=== PATIENT | female | born 1985 | race African-American/Black ===

== ENCOUNTER 2016-08-19 14:00 | Emergency (ER) | payer OTHER ==
[~2016-08-19] VITALS: Ht 170.2 cm; Wt 181.0 kg
[2016-08-19 14:29] VITALS: BP 150/92
--- NOTE | 2016-08-19 15:13 | RADIOLOGY REPORT ---
EXAMINATION: XR FOOT, RIGHT CLINICAL INFORMATION: Right foot pain COMPARISON: None TECHNIQUE: AP, lateral, and oblique views of the right foot. FINDINGS: There is diffuse soft tissue swelling. No acute fracture or dislocation. Alignment is anatomic. Joint spaces are maintained. No ankle joint effusion. IMPRESSION: Diffuse soft tissue swelling. No acute osseous abnormality.
--- NOTE | 2016-08-19 15:13 | ED GENERAL ADULT ---
History of Present Illness General Chief Complaint: Foot or Ankle Injury Stated Complaint: R FOOT SWELLING Source: patient Exam Limitations: no limitations Vital Signs & Intake/Output Vital Signs & Intake/Output Vital Signs Date Time Temp Pulse Resp B/P B/P Pulse O2 O2 Flow FiO2 Mean Ox Delivery Rate 08/19 1433 97.3 08/19 1429 97.3 90 20 150/92 95 Room Air Allergies Coded Allergies: bupropion (From WELLBUTRIN) (Severe, THROAT CLOSING 08/19/16) cephapirin (From CEFADYL) (Mild, HIVES 08/19/16) ciprofloxacin (From CIPRO) (Mild, VOMITING 08/19/16) tramadol (Mild, ITCHY 08/19/16) Triage Note: PT PRESENTS TO ER FOR RIGHT FOOT PAIN. PT DENIES TRAUMA OR INJURY TO FOOT. PT STATES PAIN STARTED 3 DAYS AGO. PT STATES PAIN IS WORSE WHEN AMBULATING. Triage Nurses Notes Reviewed? yes Onset: 3 days ago Duration: day(s):, constant, getting worse Injury Environment: atraumatic : No Patient currently breastfeeds: No HPI: 31-year-old female with a history of asthma and PE (currently managed on Coumadin with consistent in range INR's) presenting with atraumatic right foot pain/swelling gradual onset 3 days. Reports sharp pain that is worse with weightbearing and better with rest. Has tried Tylenol without relief. Denies fevers. (SHELLY TOPETE PA-C) Reconcile Medications Prazosin HCl 2 MG CAPSULE 1 CAP PO QPM URINE (Reported) Prednisone 10 MG TABLET 6 TAB PO DAILY foot swelling (ELOY HERNANDEZ DO) Past History Travel History Traveled to [place] past 21 day No Medical History Any Pertinent Medical History? see below for history Respiratory: asthma, pulmonary embolism Surgical History Surgical History: non-contributory Psychosocial History What is your primary language Turkmen Tobacco Use: Current Daily Use Daily Tobacco Use Amount/Type: =< 4 Cigarettes daily Family History Hx Contributory? No (SHELLY TOPETE PA-C) Review of Systems Review of Systems Constitutional: Denies: chills, fever, malaise, weakness. Respiratory: Denies: cough, short of breath, sputum production. Cardiovascular: Denies: chest pain, syncope. GI: Denies: abdominal pain, diarrhea, nausea, vomiting. Musculoskeletal: Reports: joint pain, joint swelling. Denies: muscle pain. Skin: Denies: change in skin color, erythema. (SHELLY TOPETE PA-C) Physical Exam Physical Exam General Appearance: well developed/nourished, no apparent distress Head: atraumatic Respiratory: normal breath sounds, lungs clear Cardiovascular: regular rate/rhythm Extremities: swelling, tenderness, On exam of the right foot there is diffuse edema extending up to the ankle, +TTP along lateral aspect, normal sensaiton, motor strength 5/5, pulses palpable, able to ambulate with slight limp. Core Measures ACS in differential dx? No CVA/TIA Diagnosis: No Severe Sepsis Present: No Septic Shock Present: No (SHELLY TOPETE PA-C) Progress Differential Diagnoses I considered the following diagnoses in my evaluation of the patient: [Fracture versus dislocation versus cellulitis versus osteoarthritis versus gout. Low suspicion for DVT given pain and swelling is isolated to the foot.] Plan of Care: Current Medications Sig/Fer Start time Last Medication Dose Stop Time Status Admin Oxycodone HCl 5 MG ONCE ONE 08/19 1545 AC (Roxicodone) 08/19 1546 Prednisone 60 MG ONCE ONE 08/19 1545 AC 08/19 1546 X-rays negative for fracture or dislocation, does show diffuse soft tissue swelling. Patient unable to take NSAIDs due to Coumadin management. We will give course of prednisone and apply Fady bandage. Instructed to apply ice to the area and follow-up with primary care provider. (SHELLY TOPETE PA-C) Initial ED EKG: none (SHELLY TOPETE PA-C) Departure Departure Disposition: HOME OR SELF CARE Condition: Stable Clinical Impression Primary Impression: Foot swelling Referrals: WALDEMAR KABA MD (PCP/Family) Departure Forms: Customer Survey General Discharge Information Comments Take 60 mg of prednisone once daily for the next 4 days. Keep Fady bandage applied during the day to help alleviate with swelling. Ice the foot 3-4 times daily to help alleviate swelling. Follow-up with her primary care provider for reevaluation. (SHELLY TOPETE PA-C) Departure Prescriptions: Current Visit Scripts Prednisone 6 TAB PO DAILY 4 Days PA/MASTER BREWER Co-Sign Statement Statement: ED Attending supervision documentation- [X] I saw and evaluated the patient. I have also reviewed all the pertinent lab results and diagnostic results. I agree with the findings and the plan of care as documented in the PA's/MASTER BREWER's documentation. [] I have reviewed the ED Record and agree with the PA's/MASTER BREWER's documentation. [] Additions or exceptions (if any) to the PAs/MASTER BREWER's note and plan are summarized below: [] (ELOY HERNANDEZ DO) Critical Care Note Critical Care Note Critical Care Time: non-applicable (YOSELYN JONES,SHELLY)
[2016-08-19] MEDS ORDERED: PREDNISONE10 M2 PO (15:52)
[2016-08-19] MEDS ORDERED: PRAZOSIN HCL2 M1 PO (16:05)
== END 2016-08-19 16:07 ==
LOC: ERH 14:00
DX: M79.89 Other specified soft tissue disorders (principal)
CPT/HCPCS: 73630-RT

== ENCOUNTER 2016-09-10 18:51 | Emergency (ER) | payer OTHER ==
[~2016-09-10] VITALS: Ht 170.2 cm; Wt 181.0 kg
[~2016-09-10 18:51] MED LIST: PRAZOSIN HCL2 M1 PO; PREDNISONE10 M2 PO
--- NOTE | 2016-09-10 20:23 | ED SKIN/ALLERGY COMPLAINT ---
History of Present Illness General Chief Complaint: Skin Rash/ Abcess Stated Complaint: ?SKIN INFECTION ON LEGS Source: patient, old records Exam Limitations: no limitations Vital Signs & Intake/Output Vital Signs & Intake/Output Vital Signs Date Time Temp Pulse Resp B/P B/P Pulse O2 O2 Flow FiO2 Mean Ox Delivery Rate 09/11 1400 98.1 74 18 118/74 97 Room Air 06/07 1208 97.9 76 18 120/70 98 Room Air 06/07 0834 98.1 72 18 112/74 98 Room Air 06/07 0606 97.6 70 20 111/63 97 Room Air 06/07 0355 96.8 72 20 110/62 97 Room Air 06/07 0219 95.3 77 20 107/59 97 Room Air 06/07 0008 95.7 77 18 109/62 97 Room Air 06/06 2225 95.9 89 20 102/59 99 Room Air 06/06 1859 96.8 89 20 147/73 94 Room Air ED Intake and Output / 0000 09/10 1200 Intake Total Output Total Balance Patient 399 lb Weight Weight Reported by Patient Measurement Method Allergies Coded Allergies: bupropion (From WELLBUTRIN) (Severe, THROAT CLOSING 08/19/16) cephapirin (From CEFADYL) (Mild, HIVES 08/19/16) ciprofloxacin (From CIPRO) (Mild, VOMITING 08/19/16) tramadol (Mild, ITCHY 08/19/16) Triage Note: PT STATES SHE WAS IN [facility] 1 WEEK AGO FOR CELLULITIS IN HER LOWER EXT. AND STATES SHE THINKS IT CAME BACK. PT STATES SHE HAS CHILLS AND HER LEGS ARE RED/WARM AND SWOLLEN Triage Nurses Notes Reviewed? yes : No Patient currently breastfeeds: No HPI: Patient comes in from a retirement complaining of bilateral leg pain and erythema to both of her thighs. Patient states that she was admitted to [facility] last week for a day and a half for cellulitis. Patient states that she had an ultrasound at that point which was negative for DVT. Patient is on Coumadin for DVT and PE in the past. Patient states that she received IV antibiotics were then but then was told that she did not need any antibiotics as an outpatient. Patient continues to have a throbbing pain to both legs. The pain is constant. There is no aggravating or mitigating factors. The pain is 6 out of 10. Patient denies any chest pain or shortness of breath. (KAYCEE PINO,IRMA Cano) Reconcile Medications Albuterol Sulfate (Proair Hfa) 90 MCG HFA.AER.AD 2 PUF INH PRN ASTHMA ( Reported) Albuterol Sulfate (Unknown Strength) VIAL.NEB (Unknown Dose) INH/RAFA PRN ASTHMA (Reported) [Bariatric walker] gait stability Divalproex Sodium (Depakote ER) 500 MG TAB.ER.24H 1,500 MG PO QPM MENTAL HEALTH (Reported) Duloxetine HCl (Cymbalta) 60 MG CAPSULE.DR 1 CAP PO BID MENTAL HEALTH ( Reported) Hydroxyzine Pamoate 100 MG CAPSULE 1 CAP PO TID PRN ANXIETY (Reported) Lurasidone HCl (Latuda) 80 MG TABLET 1 TAB PO QPM MENTAL HEALTH (Reported) Melatonin 3 MG TABLET 1 TAB PO QPM SLEEP (Reported) Prazosin HCl 2 MG CAPSULE 2 CAP PO QPM URINE (Reported) Prednisone 10 MG TABLET 1 TAB PO DAILY ARTHRITIS TAKE 4 TABS FOR 3 DAYS THEN TAKE 3 TABS FOR 3 DAYS THEN TAKE 2 TABS FOR 3 DAYS THEN TAKE 1 TAB FOR 3 DAYS Topiramate (Topamax) 200 MG TABLET 1 TAB PO QPM HEADACHES (Reported) Trazodone HCl 100 MG TABLET 2 TAB PO QPM SLEEP (Reported) Warfarin Sodium 6 MG TABLET 12 MG PO DAILY BLOOD THINNER (Reported) (SARAH DE LA VEGA MD) Past History Travel History Traveled to [place] past 21 day No Medical History Any Pertinent Medical History? see below for history Respiratory: asthma, pulmonary embolism Musculoskeletal: OBESITY Blood Disorders: DVT Surgical History Surgical History: non-contributory Psychosocial History What is your primary language Tongan Tobacco Use: Current Daily Use Daily Tobacco Use Amount/Type: =< 4 Cigarettes daily ETOH Use: denies use Illicit Drug Use: denies illicit drug use Family History Hx Contributory? No (KAYCEE PINO,IRMA Cano) Review of Systems Review of Systems Constitutional: Reports: no symptoms. EENTM: Reports: no symptoms. Respiratory: Reports: no symptoms. Cardiovascular: Reports: no symptoms. GI: Reports: no symptoms. Genitourinary: Reports: no symptoms. Musculoskeletal: Reports: see HPI. Skin: Reports: no symptoms. Neurological/Psychological: Reports: no symptoms. Hematologic/Endocrine: Reports: no symptoms. Immunologic/Allergic: Reports: no symptoms. All Other Systems: Reviewed and Negative (KAYCEE PINO,IRMA Cano) Physical Exam Physical Exam General Appearance: well developed/nourished, alert, awake, mild distress Head: atraumatic Eyes: Bilateral: PERRL, EOMI. Ears, Nose, Throat: normal pharynx, normal ENT inspection, hearing grossly normal Neck: normal inspection, supple Respiratory: normal breath sounds, chest non-tender, no respiratory distress, lungs clear Cardiovascular: regular rate/rhythm, normal peripheral pulses Gastrointestinal: normal bowel sounds, soft, non-tender Back: normal inspection Extremities: normal inspection, normal range of motion, no edema, NO ERYTHMEA Neurologic/Psych: no motor/sensory deficits, awake, alert, oriented x 3, normal mood/affect Lymphatic: no anterior cervical julianna, NO INGUINAL LAD (KAYCEE PINO,IRMA aCno) Progress Differential Diagnosis: CELLULITIS, DVT Plan of Care: Orders Procedure Date/time Status Regular Diet 09/11 B Active Theraputic Activities 15 Min 09/11 UNK Complete Therapeutic Exercise X 15 09/11 UNK Complete PT EVAL LOW COMPLEX 20 MIN 09/11 UNK Complete PT Evaluate & Treat 09/10 2217 Active CASE MANAGEMENT CONSULT 09/10 2217 Active Add-on Test (ER Only) 09/10 2046 Active BLOOD CULTURE 09/10 1899 Active PARTIAL THROMBOPLASTIN TIME 09/10 190 Complete PROTHROMBIN TIME 09/10 190 Complete DEPAKOTE LEVEL 09/10 190 Complete COMPREHENSIVE METABOLIC PANEL 09/10 190 Complete CBC WITHOUT DIFFERENTIAL 09/10 190 Complete Current Medications Sig/Fer Start time Last Medication Dose Stop Time Status Admin Trazodone HCl 200 MG QPM 09/11 2200 UNVr (Desyrel) Hydroxyzine HCl 100 MG Q8P PRN 09/11 1045 AC (Atarax) Valacyclovir HCl 1,000 MG QAM 09/11 1000 CAN (Valtrex) Melatonin 3 MG AT BEDTIME 09/10 223 UNVr 09/10 (Melatonin) 2348 Duloxetine HCl 60 MG BID 09/10 2213 UNVr 09/11 (Cymbalta) 1051 Laboratory Tests 09/10/162049: Anion Gap 12, Estimated GFR > 60, BUN/Creatinine Ratio 8.6, Glucose 88, Calcium 9.3, Total Bilirubin 0.6, AST 41 H, ALT 48, Alkaline Phosphatase 80, Total Protein 7.7, Albumin 4.2, Globulin 3.5, Albumin/Globulin Ratio 1.2, PT 15.4 H, INR 1.47 H, APTT 26, CBC w Diff NO MAN DIFF REQ, RBC 4.62, MCV 89.6, MCH 29.0, RDW 15.8 H, MPV 7.6, Gran % 51.4, Lymphocytes % 40.4, Monocytes % 5.2, Eosinophils % 2.4, Basophils % 0.6, Absolute Granulocytes 3.7, Absolute Lymphocytes 2.9, Absolute Monocytes 0.4, Absolute Eosinophils 0.2, Absolute Basophils 0, PUBS MCHC 32.3 L, Valproic Acid 41.6 L Microbiology 09/10 2049 BLOOD: Blood Culture - RES 09/10 1899 BLOOD: Blood Culture - CAN Cancelled: NO SECOND SET COLLECTED FOR MICRO DEPT. IF NEEDED MUST BE Hand-Off Endorsed To: SARAH DE LA VEGA MD Endorsed Time: 0700 Pending: consult (PT/CASE MANAGEMENT) Comments: Patient lives in retirement. Patient states that her leg pain just to the point that she is having mild difficulty ambulating. Patient states that this abnormal just before to our mission and prednisone. Patient states that after a few days and prednisone she felt better. Patient will remain in the emergency department overnight and have physical therapy and case management evaluation in the morning. Patient has been given 60 mg of prednisone and taper will be started. (KAYCEE PINO,IRMA Cano) Departure Departure Disposition: STILL A PATIENT Condition: Stable Clinical Impression Primary Impression: Leg pain Qualifiers: Laterality: bilateral Qualified Codes: M79.604 - Pain in right leg; M79.605 - Pain in left leg (KAYCEE PINO,IRMA Cano) Departure Time of Disposition: 1321 Referrals: WALDEMAR KABA MD (PCP/Family) Departure Forms: General Discharge Information Prescriptions: Current Visit Scripts [Bariatric walker] #1 Prednisone 0 PO SEE ADMIN CRITERIA #30 TAB 4 tabs for 3 days them 3 tabs for 3 days then 2 tabs for 3 days then 1 tab for 3 days (SARAH DE LA VEGA MD)
[2016-09-10] MEDS ORDERED: PROAIR HFA8.5 GM INH (20:28)
[2016-09-10] MEDS ORDERED: ALBUTEROL2.5 MG/3 M INH/SOL (20:29)
[2016-09-10] MEDS ORDERED: HYDROXYZINE PA100 M1 PO (20:30)
[2016-09-10] MEDS ORDERED: DEPAKOTE ER500 M1 PO (20:31)
[2016-09-10] MEDS ORDERED: LATUDA80 M1 PO (20:31)
[2016-09-10] MEDS ORDERED: CYMBALTA60 M1 PO (20:31)
[2016-09-10] MEDS ORDERED: MELATONIN3 M4 PO (20:32)
[2016-09-10] MEDS ORDERED: TRAZODONE HCL100 M1 PO (20:32)
[2016-09-10] MEDS ORDERED: WARFARIN SODIUM6 M1 PO (20:33)
[2016-09-10] MEDS ORDERED: TOPAMAX200 M1 PO (20:33)
[2016-09-10 21:11] LABS: ABSOLUTE BASOPHIL COUNT 0 /CUMM (0.0-0.2); ABSOLUTE EOSINOPHIL COUNT 0.2 /CUMM (0.0-0.7); ABSOLUTE GRANULOCYTE CT 3.7 /CUMM (1.4-6.5); ABSOLUTE LYMPH COUNT 2.9 /CUMM (1.2-3.4); ABSOLUTE MONOCYTE COUNT 0.4 /CUMM (0.10-0.60); BASOPHIL % 0.6 % (0.0-2.0); EOSINOPHIL % 2.4 % (0-5); GRANULOCYTE % 51.4 % (42.2-75.2); HEMATOCRIT 41.4 % (37-47); MEAN CORPUSCULAR HGB CONC 32.3 G/DL (33.0-37.0); MEAN CORPUSCULAR VOLUME 89.6 FL (81.0-99.0); MEAN PLATELET VOLUME 7.6 FL (7.4-10.4); PLATELET COUNT 298 /CUMM (130-400); RBC DISTRIBUTION WIDTH 15.8 % (11.5-14.5); RED BLOOD CELL CT 4.62 /CUMM (4.20-5.40); WHITE BLOOD CELL COUNT 7.3 /CUMM (4.8-10.8)
[2016-09-10 21:22] LABS: PT 15.4 SEC (9.4-12.5); PTT 26 SEC (25-37)
[2016-09-10] MEDS ORDERED: PREDNISONE10 M2 PO (22:45)
[2016-09-11] MEDS ORDERED: [UNRECOGNIZED DRUG - OTHER] (09:45)
[2016-09-11 14:00] VITALS: BP 118/74
[2016-09-11] MEDS ORDERED: PREDNISONE10 M2 PO (14:04)
[2016-09-11] MEDS ORDERED: WARFARIN SODIUM6 M1 PO (14:21)
[2016-09-11] MEDS ORDERED: ACETAMINOPHEN325 M2 PO (14:21)
== END 2016-09-11 14:20 ==
LOC: ERH 18:51
PROVIDERS: Emergency Medicine
DX: M79.604 Pain in right leg (principal); M79.605 Pain in left leg
CPT/HCPCS: 87040; 97110-GP; 97161-GP; 97530-GP

== ENCOUNTER 2016-09-16 18:13 | Emergency (ER) | payer OTHER ==
[~2016-09-16] VITALS: Ht 170.2 cm; Wt 181.0 kg
[~2016-09-16 18:13] MED LIST changes: +ACETAMINOPHEN325 M2 PO; +ALBUTEROL2.5 MG/3 M INH/SOL; +CYMBALTA60 M1 PO; +DEPAKOTE ER500 M1 PO; +HYDROXYZINE PA100 M1 PO; +LATUDA80 M1 PO; +MELATONIN3 M4 PO; +PROAIR HFA8.5 GM INH; +TOPAMAX200 M1 PO; +TRAZODONE HCL100 M1 PO; +WARFARIN SODIUM6 M1 PO; +[UNRECOGNIZED DRUG - OTHER]
--- NOTE | 2016-09-16 20:29 | ED GI/GU/ABDOMINAL COMPLAINT ---
History of Present Illness General Chief Complaint: Abdominal Pain/Flank Pain Stated Complaint: LOWER LT ABDOMINAL PAIN Source: patient Exam Limitations: no limitations Vital Signs & Intake/Output Vital Signs & Intake/Output Vital Signs Date Time Temp Pulse Resp B/P B/P Pulse O2 O2 Flow FiO2 Mean Ox Delivery Rate 09/16 2103 98.1 78 18 112/78 97 Room Air 09/16 1820 97.7 88 20 124/82 95 Room Air Allergies Coded Allergies: bupropion (From WELLBUTRIN) (Severe, THROAT CLOSING 08/19/16) cephapirin (From CEFADYL) (Mild, HIVES 08/19/16) ciprofloxacin (From CIPRO) (Mild, VOMITING 08/19/16) tramadol (Mild, ITCHY 08/19/16) Reconcile Medications Acetaminophen 325 MG TABLET 2-3 TAB PO Q6P PRN pain Albuterol Sulfate (Proair Hfa) 90 MCG HFA.AER.AD 2 PUF INH PRN ASTHMA ( Reported) Albuterol Sulfate (Unknown Strength) VIAL.NEB (Unknown Dose) INH/RAFA PRN ASTHMA (Reported) Augmentin (Augmentin 500-125 Tablet) 500 MG-125 MG TABLET 1 TAB PO BID cellulitis Divalproex Sodium (Depakote ER) 500 MG TAB.ER.24H 1,500 MG PO QPM MENTAL HEALTH (Reported) Duloxetine HCl (Cymbalta) 60 MG CAPSULE.DR 1 CAP PO BID MENTAL HEALTH ( Reported) Hydroxyzine Pamoate 100 MG CAPSULE 1 CAP PO TID PRN ANXIETY (Reported) Lurasidone HCl (Latuda) 80 MG TABLET 1 TAB PO QPM MENTAL HEALTH (Reported) Melatonin 3 MG TABLET 1 TAB PO QPM SLEEP (Reported) Meloxicam (Mobic) 15 MG TABLET 1 TAB PO DAILY PRN pain Prazosin HCl 2 MG CAPSULE 2 CAP PO QPM URINE (Reported) Prednisone 10 MG TABLET 0 PO SEE ADMIN CRITERIA leg pain 4 tabs for 3 days them 3 tabs for 3 days then 2 tabs for 3 days then 1 tab for 3 days Topiramate (Topamax) 200 MG TABLET 1 TAB PO QPM HEADACHES (Reported) Trazodone HCl 100 MG TABLET 2 TAB PO QPM SLEEP (Reported) Warfarin Sodium 6 MG TABLET 2 TAB PO DAILY pe Triage Note: PT STATES SHE IS HAVING ABD PAIN LLQ STATES THE PAIN RADIATES INTO HER GROIN. PT STATES THE AREA IS RED AND IT FEELS LIKE "SOMETHING TORE" Triage Nurses Notes Reviewed? yes ? N Is pt currently ? No Onset: Abrupt Duration: constant Timing: recent history Quality/Severity: severe, stabbing Severity Numbers: 8 Radiation: no radiation Activities at Onset: none HPI: Patient is a 31-year-old female with a past medical history of gastric bypass surgery performed remotely who presents to emergency room stating that last night patient was eating her normal dinner and 5 hours later patient had acute onset of left lower quadrant abdominal pain and noticeable red skin irritation and point tenderness. Patient denies any fever chills vaginal bleeding or discharge dysuria hematuria nausea or vomiting. Patient does note of loose watery stool production today no blood no melena noted. Patient is able tolerate by mouth Past History Travel History Traveled to [place] past 21 day No Medical History Any Pertinent Medical History? see below for history Respiratory: asthma, pulmonary embolism Musculoskeletal: OBESITY Blood Disorders: DVT Surgical History Surgical History: GASTRIC BYPASS Psychosocial History What is your primary language Maltese Tobacco Use: Current Daily Use Daily Tobacco Use Amount/Type: =< 4 Cigarettes daily ETOH Use: occasional use Illicit Drug Use: denies illicit drug use Family History Hx Contributory? No Review of Systems Review of Systems Constitutional: Reports: no symptoms. EENTM: Reports: no symptoms. Respiratory: Reports: no symptoms. Cardiovascular: Reports: no symptoms. GI: Reports: see HPI, abdominal pain. Genitourinary: Reports: no symptoms. Musculoskeletal: Reports: no symptoms. Skin: Reports: no symptoms. Neurological/Psychological: Reports: no symptoms. Hematologic/Endocrine: Reports: no symptoms. Immunologic/Allergic: Reports: no symptoms. All Other Systems: Reviewed and Negative Physical Exam Physical Exam General Appearance: obese Gastrointestinal: normal bowel sounds, soft Comments: HEENT: Normal EENT exam, Neck: Supple, no lymphadenopathy, normal range of motion without pain or tenderness Back: Nontender, no CVA tenderness. Cardiovascular: Regular rate and rhythms no murmurs rubs or gallops, normal JVP Respiratory: Chest nontender. No respiratory distress.breath sounds clear to auscultation bilaterally Abdomen: Soft, noted left-sided periumbilical mild erythema WARMTH, point tenderness no right lower quadrant pain no rebound tenderness nondistended, no appreciable organomegaly. Normal bowel sounds. No ascites Extremity: No edema, no calf tenderness to palpation, normal and equal pulses. Neuro: Alert oriented x3, motor sensory normal, Skin: No appreciable rash on exposed skin, skin is warm and dry. Psych: Mood and affect is normal, memory and judgment is normal. Core Measures ACS in differential dx? No Severe Sepsis Present: No Septic Shock Present: No Progress Differential Diagnosis: AAA, AMI, appendicitis, biliary colic, bowel obstruction , colon cancer, cholecystitis, diverticulitis, ectopic , endometritis, esophageal varices, gastritis, hepatitis, hernia, hemorrhoids, ischemic bowel, inflamm bowel dis, intrauterine , kidney stone, Laisha-Rohan tear, ovarian cyst, ovarian torsion, pancreatitis, PID/cervicitis, peptic ulcer, PUD/ GERD, perforated viscous, SBO, threatened AB, UTI/pyelo Plan of Care: Orders Procedure Date/time Status LIPASE 09/17 2035 Complete HUMAN BETA HCG SCREEN 09/17 2035 Complete COMPREHENSIVE METABOLIC PANEL 09/17 2035 Complete CBC WITHOUT DIFFERENTIAL 09/17 2035 Complete URINE 09/16 1934 Complete URINALYSIS 09/16 1934 Complete Laboratory Tests 09/16/168: Urine Color YEL, Urine Clarity CLEAR, Urine pH 6.0, Ur Specific [place] 1.025, Urine Protein NEG, Urine Ketones NEG, Urine Nitrite NEG, Urine Bilirubin NEG, Urine Urobilinogen 0.2, Ur Leukocyte Esterase NEG, Ur Microscopic EXAM NOT REQUIRED, Urine Hemoglobin NEG, Urine Glucose NEG, Urine Test NEGATIVE 09/16/16 2141: Anion Gap 8, Estimated GFR > 60, BUN/Creatinine Ratio 16.0, Glucose 90, Calcium 9.0, Total Bilirubin 0.4, AST 13 L, ALT 29, Alkaline Phosphatase 63, Total Protein 6.7, Albumin 3.5, Globulin 3.2, Albumin/Globulin Ratio 1.1, Lipase 42, Total Beta HCG NEGATIVE, CBC w Diff NO MAN DIFF REQ, RBC 4.21, MCV 90.2, MCH 29.5, RDW 17.0 H, MPV 7.4, Gran % 61.4, Lymphocytes % 29.5, Monocytes % 7.6, Eosinophils % 1.1, Basophils % 0.4, Absolute Granulocytes 8.2 H, Absolute Lymphocytes 3.9 H, Absolute Monocytes 1.0 H, Absolute Eosinophils 0.1, Absolute Basophils 0.1, PUBS MCHC 32.7 L Patient currently is resting comfortably at bedside no apparent distress vital signs were within normal limits. Patient has superficial point tenderness noted to with erythema was noted on physical exam. Blood work currently pending. No signs of abscess or induration. PT HAS NO RLQ PAIN NO REBOUND TENDERNESS DUE TO HPI AND EXAM FINDINGS PT WILL BE TX FOR CONCERNS OF ABDOMINAL WALL CELLULITIS No concerns of appendicitis. Patient upon discharge looks well no apparent distress and will comply with discharge instructions and had no questions (SHIRA WEINBERG,QUINN) Initial ED EKG: none Departure Departure Disposition: HOME OR SELF CARE Condition: Stable Clinical Impression Primary Impression: Abdominal pain Secondary Impressions: Cellulitis of abdominal wall Referrals: SENDY PINO,WALDEMAR Givens (PCP/Family) Additional Instructions: As discussed begin the prescription of Augmentin as directed for the full course. Begin the prescription of meloxicam for pain and inflammation. If symptoms worsen return to emergency room. Prescriptions are waiting at [facility]. Follow up with your primary care doctor in 3 days if no better Departure Forms: Customer Survey General Discharge Information Prescriptions: Current Visit Scripts Augmentin (Augmentin 500-125 Tablet) 1 TAB PO BID #20 TAB Meloxicam (Mobic) 1 TAB PO DAILY PRN pain #5 TAB
[2016-09-16 21:49] LABS: ABSOLUTE BASOPHIL COUNT 0.1 /CUMM (0.0-0.2); ABSOLUTE EOSINOPHIL COUNT 0.1 /CUMM (0.0-0.7); ABSOLUTE GRANULOCYTE CT 8.2 /CUMM (1.4-6.5); ABSOLUTE LYMPH COUNT 3.9 /CUMM (1.2-3.4); BASOPHIL % 0.4 % (0.0-2.0); EOSINOPHIL % 1.1 % (0-5); HEMATOCRIT 37.9 % (37-47); MEAN CORPUSCULAR HGB 29.5 PG (27.0-31.0); MEAN CORPUSCULAR HGB CONC 32.7 G/DL (33.0-37.0); MEAN CORPUSCULAR VOLUME 90.2 FL (81.0-99.0); MEAN PLATELET VOLUME 7.4 FL (7.4-10.4); PLATELET COUNT 247 /CUMM (130-400); RED BLOOD CELL CT 4.21 /CUMM (4.20-5.40)
[2016-09-16 21:51] LABS: GRANULOCYTE % 61.4 % (42.2-75.2); WHITE BLOOD CELL COUNT 13.3 /CUMM (4.8-10.8)
[2016-09-16] MEDS ORDERED: MOBIC15 M1 PO (22:22)
[2016-09-16] MEDS ORDERED: AUGMENTIN 500-1 EACH PO (22:22)
[2016-09-16 22:45] VITALS: BP 116/81
== END 2016-09-16 22:45 ==
LOC: ERH 18:13
PROVIDERS: Physician Assistant
DX: R10.33 Periumbilical pain (principal); L03.311 Cellulitis of abdominal wall
CPT/HCPCS: 81003; 81025

== ENCOUNTER 2016-09-17 13:17 | Inpatient (IN) | payer OTHER ==
[~2016-09-17] VITALS: Ht 170.2 cm; Wt 190.5 kg
[~2016-09-17 13:17] MED LIST changes: +AUGMENTIN 500-1 EACH PO; +MOBIC15 M1 PO
--- NOTE | 2016-09-17 13:36 | ED GI/GU/ABDOMINAL COMPLAINT ---
History of Present Illness General Chief Complaint: Abdominal Pain/Flank Pain Stated Complaint: ABD PAIN SOB Source: patient Exam Limitations: no limitations Vital Signs & Intake/Output Vital Signs & Intake/Output Vital Signs Date Time Temp Pulse Resp B/P B/P Pulse O2 O2 Flow FiO2 Mean Ox Delivery Rate 09/17 1928 105 18 122/64 97 Room Air Room Air 09/17 1834 98.0 09/17 1647 98.7 109 18 97 Room Air 09/17 1548 113 16 98 Room Air 09/17 1522 100.7 09/17 1508 96 Room Air Room Air 09/17 1450 103.2 09/17 1335 103.2 110 20 128/66 97 Room Air Allergies Coded Allergies: bupropion (From WELLBUTRIN) (Severe, THROAT CLOSING 08/19/16) cephapirin (From CEFADYL) (Mild, HIVES 08/19/16) ciprofloxacin (From CIPRO) (Mild, VOMITING 08/19/16) tramadol (Mild, ITCHY 08/19/16) Triage Nurses Notes Reviewed? yes ? N Is pt currently ? No HPI: 31 yo F PMH Asthma, DVT/PE (on coumadin), gastric bypass presenting with fevers, abdominal pain, shortness of breath. Abdominal pain since yesterday, left lower quadrant, aching/stabbing quality, radiating to the left flank, left upper quadrant, and left chest, intermittent, fluctuating intensity, currently severe, possibly worse after eating. Associated nausea without emesis, loose stools. Tactile fevers and chills starting last night. Shortness of breath starting today, associated palpitations and sensation of racing heartbeat. Evaluated for left lower quadrant pain yesterday in the ED, redness to skin overlying left lower quadrant, though to have abdominal wall cellulitis, discharged with Augmentin which the patient was unable to obtain from the pharmacy or start taking. Denies cough or URI symptoms, lower extremity swelling or pain, palpitations, constipation, hematochezia, melena, urinary symptoms, vaginal symptoms, headache, neck pain, neck stiffness or focal neurologic symptoms. (FREDY PINO,HENNY) Reconcile Medications Acetaminophen 325 MG TABLET 2-3 TAB PO Q6P PRN pain Albuterol Sulfate (Proair Hfa) 90 MCG HFA.AER.AD 2 PUF INH PRN ASTHMA ( Reported) Albuterol Sulfate 2.5 MG/3 ML (0.083 %) VIAL.NEB 2.5 MG INH/RAFA Q6P PRN ASTHMA (Reported) Cefuroxime Axetil (Cefuroxime) 500 MG TABLET 1 TAB PO BID Pneumonia Divalproex Sodium (Depakote ER) 500 MG TAB.ER.24H 1,500 MG PO QPM MENTAL HEALTH (Reported) Duloxetine HCl (Cymbalta) 60 MG CAPSULE.DR 1 CAP PO BID MENTAL HEALTH ( Reported) Hydroxyzine Pamoate 100 MG CAPSULE 1 CAP PO TID PRN ANXIETY (Reported) Lurasidone HCl (Latuda) 80 MG TABLET 1 TAB PO QPM MENTAL HEALTH (Reported) Melatonin 3 MG TABLET 1 TAB PO QPM SLEEP (Reported) Meloxicam (Mobic) 15 MG TABLET 1 TAB PO DAILY PRN pain Oxycodone HCl/Acetaminophen (Percocet 5-325 MG Tablet) 5 MG-325 MG TABLET 2 TAB PO Q6-PRN PRN PAIN SCALE 7-10 (SEVERE) Prazosin HCl 2 MG CAPSULE 2 CAP PO QPM URINE (Reported) Topiramate (Topamax) 200 MG TABLET 1 TAB PO QPM HEADACHES (Reported) Trazodone HCl 100 MG TABLET 2 TAB PO QPM SLEEP (Reported) Warfarin Sodium 6 MG TABLET 2 TAB PO DAILY pe (TALHA PINO,COLTON) Past History Medical History Any Pertinent Medical History? see below for history Respiratory: asthma, pulmonary embolism Musculoskeletal: OBESITY Blood Disorders: DVT Surgical History Surgical History: GASTRIC BYPASS Psychosocial History What is your primary language Finnish Family History Hx Contributory? Yes (FREDY PINO,HENNY) Review of Systems Review of Systems Constitutional: Reports: chills, fever, malaise, weakness. EENTM: Reports: no symptoms. Respiratory: Reports: short of breath. Denies: cough, sputum production, stridor, wheezing. Cardiovascular: Reports: chest pain. Denies: palpitations, peripheral edema, syncope. GI: Reports: abdominal pain, diarrhea, nausea, vomiting. Denies: bloody stool. Genitourinary: Reports: no symptoms. Musculoskeletal: Reports: back pain. Denies: joint pain, joint swelling, muscle pain, muscle stiffness. Skin: Reports: change in skin color. Denies: rash. Neurological/Psychological: Reports: no symptoms. Hematologic/Endocrine: Reports: no symptoms. Immunologic/Allergic: Reports: no symptoms. All Other Systems: Reviewed and Negative (FREDY PINO,HENNY) Physical Exam Physical Exam General Appearance: well developed/nourished, no apparent distress, eyes closed, but easily aroused Head: atraumatic, normal appearance Neck: normal inspection, full range of motion, no midline tenderness Respiratory: normal breath sounds, no respiratory distress, lungs clear Cardiovascular: normal peripheral pulses, tachycardia Gastrointestinal: normal bowel sounds, soft, tenderness Back: CVA tenderness (L) Comments: General: Laying in a hospital bed, appears fatigued, eyes closed resting, easily aroused to voice Pulmonary: Lungs clear to auscultation bilaterally without adventitious lung sounds Abdomen: Obese, soft, Moderate tenderness palpation of left lower quadrant without rebound or guarding, left CVA tenderness palpation Extremities: No tenderness to palpation of bilateral lower extremities Core Measures ACS in differential dx? No Severe Sepsis Present: Yes Septic Shock Present: No (FREDY PINO,HENNY) Progress Differential Diagnosis: AAA, AMI, appendicitis, biliary colic, bowel obstruction , colon cancer, cholecystitis, diverticulitis, ectopic , endometritis, esophageal varices, gastritis, hepatitis, hernia, hemorrhoids, ischemic bowel, inflamm bowel dis, intrauterine , kidney stone, Laisha-Rohan tear, ovarian cyst, ovarian torsion, pancreatitis, PID/cervicitis, peptic ulcer, PUD/ GERD, perforated viscous, SBO, threatened AB, UTI/pyelo Plan of Care: Orders Procedure Date/time Status Nothing by Mouth 09/18 B Active Patient Data 09/17 2256 Active ED Holding Orders 09/17 2252 Active Vital Signs 09/17 2252 Active Code Status 09/17 2252 Active Admit to inpatient 09/17 2251 Active URINE 09/17 1702 Complete BLOOD CULTURE 09/17 1357 Active CULTURE,URINE 09/17 1350 Active URINALYSIS 09/17 1350 Complete PROTHROMBIN TIME 09/17 1350 Complete LACTIC ACID 09/17 1350 Complete HEPATIC FUNCTION PANEL 09/17 1350 Complete CBC WITHOUT DIFFERENTIAL 09/17 1350 Complete BASIC METABOLIC PANEL 09/17 1350 Complete EKG 09/17 1322 Active Current Medications Sig/Fer Start time Last Medication Dose Stop Time Status Admin Sodium Chloride 1,000 ML BOLUS ONE 09/17 2129 AC 09/17 (Normal Saline 0.9%) 09/17 2329 2207 Laboratory Tests 09/17/16 173: Urine Test NEGATIVE 09/17/16 173: Urine Color YEL, Urine Clarity CLEAR, Urine pH 6.0, Ur Specific Halma 1.010, Urine Protein NEG, Urine Ketones NEG, Urine Nitrite NEG, Urine Bilirubin NEG, Urine Urobilinogen 0.2, Ur Leukocyte Esterase NEG, Ur Microscopic EXAM NOT REQUIRED, Urine Hemoglobin NEG, Urine Glucose NEG 09/17/16 135: Anion Gap 8, Estimated GFR > 60, BUN/Creatinine Ratio 21.3, Glucose 93, Lactic Acid 1.9, Calcium 9.1, Total Bilirubin 0.4, Direct Bilirubin 0.1, AST 16, ALT 20 , Alkaline Phosphatase 68, Total Protein 6.8, Albumin 3.6, PT 22.1 H, INR 2.12 H, CBC w Diff MAN DIFF ORDERED, RBC 4.32, MCV 90.4, MCH 29.6, RDW 16.6 H, MPV 7.5, Gran % 92.5 H, Lymphocytes % 5.1 L, Monocytes % 2.3, Eosinophils % 0, Basophils % 0.1, Absolute Granulocytes 14.8 H, Segmented Neutrophils 81 H, Band Neutrophils 7 H, Absolute Lymphocytes 0.8 L, Lymphocytes 9 L, Monocytes 3, Absolute Monocytes 0.4, Absolute Eosinophils 0, Absolute Basophils 0, Platelet Estimate ADEQUATE, Normocytic RBCs VERIFIED, Normochromic RBCs VERIFIED , PUBS MCHC 32.7 L Microbiology 09/17 1736 URINE ROUT: Urine Culture - RECD 09/17 1410 BLOOD: Blood Culture - RECD 09/17 1358 BLOOD: Blood Culture - RECD 09/17 1352 BLOOD: Blood Culture - CAN Cancelled: Cancelled via OE: VENOUS COLLECTION 09/17 135 BLOOD: Blood Culture - CAN Cancelled: Cancelled via OE: VENOUS COLLECTION Physician MDM: 31 yo F PMH Asthma, DVT/PE (on coumadin), gastric bypass presenting with fevers, abdominal pain, shortness of breath. Tachycardic in the 120s, BP stable, febrile to 103.2, cardiopulmonary and abdominal exams as above. DDx: Sepsis with unclear source (UTI, pyelonpehritis, PNA, intrabdominal), appendicitis, diverticulitis, complication of prior gastric bypass, less likely PE given patient anticoagulated, low concern for ACS. EKG sinus tachycardia, nonischemic. 2 L normal saline and Tylenol ordered. Patient has allergies to cephalosporins, penicillins, and ciprofloxacin (reportedly anaphylaxis), will attempt broad spectrum coverage with vancomycin, Flagyl, Bactrim. CBC with leukocytosis to 16.0, bandemia of 7%. CMP with mild hyponatremia at 134, otherwise unremarkable. Lactate 1.9. Patient persistently tachycardic in the low 100s, third liter of normal saline ordered. Attempted to obtain CT of the abdomen and pelvis, patient placed on table for CT, CT table did not move into scanner, patient likely overweight for scanner. Patient transferred to [facility] via [facility] for CT scan of the abdomen and pelvis on the higher weight limit CT scanner. On return from [facility], HR 90s, BP stable, persistent LLQ/Left flank pain. CT A/P with "two large consolidated mass-like densites in the Left lung base along the pulmonary vasculature ... likely representing pneumonic consolidation." CT suggestive of PNA (espescially given fevers), but lesions along pulmonary vasculature also concerning for ?PE, no singificant changes in management given patient already therapeutically anticoagulated, will hold heparin gtt for now, plan discussed with admitting team. Admit to hospitalist for further managment of sepsis 2/2 PNA. The plan of care was discussed with the patient expressed agreement and understanding. (FREDY PINO,HENNY) Initial ED EKG: Sinus tachycardia (HENNY DANIEL MD) Departure Departure Disposition: STILL A PATIENT Condition: Stable Clinical Impression Primary Impression: Tachycardia Secondary Impressions: Sepsis Qualifiers: Sepsis type: sepsis due to unspecified organism Qualified Code: A41.9 - Sepsis, unspecified organism Referrals: WALDEMAR KABA MD (PCP/Family) Departure Forms: Customer Survey General Discharge Information Admission Note Spoke With: KYA HERNANDEZ MD Documentation of Exam: Documentation of any treatments & extenuating circumstances including Concerns Regarding Discharge (functional status, medication knowledge or non-compliance, living conditions, etc.) that warrant an admission rather than observation: [ Patient presents with shortness of breath, left-sided abdominal and chest pain, found to be septic with tachycardia, fever, probable source after evaluation in the left lower lobe pneumonia, but ongoing concern for PE, patient requires admission for ongoing IV fluid resuscitation, monitoring of vital signs, ongoing IV antibiotic administration, further evaluation for recurrent PE, if discharged patient has a high likelihood of progression of her infection, worsening sepsis with hypotension and cardiovascular collapse, leading to significant morbidity and possibly ] (FREDY PINO,HENNY) Departure Prescriptions: Current Visit Scripts Cefuroxime Axetil (Cefuroxime) 1 TAB PO BID #8 TAB Oxycodone HCl/Acetaminophen (Percocet 5-325 MG Tablet) 2 TAB PO Q6-PRN PRN PAIN SCALE 7-10 (SEVERE) #40 TAB Resident Co-Sign Statement Statement: ED Attending supervision documentation- [] I saw and evaluated the patient. I have also reviewed all the pertinent lab results and diagnostic results. I agree with the findings and the plan of care as documented in the Resident's documentation. [X] I have reviewed the ED Record and agree with the Resident's documentation. [] Additions or exceptions (if any) to the Resident's note and plan are summarized below: [] (TALHA PINO,COLTON)
--- NOTE | 2016-09-17 13:45 | NUR ---
31 YEAR OLD FEMALE TO ER WITH COMPLAINTS OF ABD PAIN THAT RADIATES INTO HER BACK AND FEELING SOB AND MID CPO2 SAT 100 % ON RA. . PT WAS EVALUATED YESTERDAY IN ER AND DIAGNOSED WITH CELLULITIS OF HER ABD AND SENT HOME WITH SCRIPTS FOR ABT. PT DID NOT START THEM DUE TO THEY WERE NOT DELIVERED. NO REDNESS NOTED ON HER ABD AT THIS TIME, PT STATES THAT SHE WAS NOT FEELING WELL THIS AM, N/V/D AND THEN SHE DECIDED TO GO SIT OUTSIDE , PT SKIN HOT TO TOUCH, FEBRILE 103.2 SINUS TACH ON MONITOR HR 120.
--- NOTE | 2016-09-17 13:50 | NUR ---
APPRECIATE TRIAGE NOTE. PT TO ROOM 17 VIA STRETCHER. AWAITING PROVIDER EVAL AT THIS TIME.
[2016-09-17 14:03] LABS: ABSOLUTE BASOPHIL COUNT 0 /CUMM (0.0-0.2); ABSOLUTE EOSINOPHIL COUNT 0 /CUMM (0.0-0.7); ABSOLUTE GRANULOCYTE CT 14.8 /CUMM (1.4-6.5); ABSOLUTE LYMPH COUNT 0.8 /CUMM (1.2-3.4); ABSOLUTE MONOCYTE COUNT 0.4 /CUMM (0.10-0.60); BASOPHIL % 0.1 % (0.0-2.0); EOSINOPHIL % 0 % (0-5); HEMATOCRIT 39.1 % (37-47); MEAN CORPUSCULAR HGB 29.6 PG (27.0-31.0); MEAN CORPUSCULAR HGB CONC 32.7 G/DL (33.0-37.0); MEAN CORPUSCULAR VOLUME 90.4 FL (81.0-99.0); MEAN PLATELET VOLUME 7.5 FL (7.4-10.4); PLATELET COUNT 235 /CUMM (130-400); RBC DISTRIBUTION WIDTH 16.6 % (11.5-14.5); RED BLOOD CELL CT 4.32 /CUMM (4.20-5.40)
[2016-09-17 14:05] LABS: GRANULOCYTE % 92.5 % (42.2-75.2)
[2016-09-17 14:07] LABS: PT 22.1 SEC (9.4-12.5)
--- NOTE | 2016-09-17 14:15 | NUR ---
PT TO RADIOLOGY FOR X-RAYS AND CAT SCAN VIA STRETCHER.
--- NOTE | 2016-09-17 14:24 | RADIOLOGY REPORT ---
EXAMINATION: XR CHEST CLINICAL INFORMATION: Cough and fever. Assess for pneumonia. COMPARISON: None. TECHNIQUE: Frontal and lateral views of the chest were obtained. Evaluation is suboptimal due to patient body habitus. FINDINGS: The lung nash are hypoexpanded bilaterally. No focal consolidation is demonstrated. There is crowding of the bronchovascular markings at the bases, likely secondary to the hypoexpansion. The cardiac silhouette is normal. There are no pleural effusions or pneumothorax. The central pulmonary vasculature is normal. The hilar regions appear normal. There are no acute osseous findings. IMPRESSION: 1. There are no acute cardiopulmonary findings. 2. Evaluation is slightly suboptimal as described above.
--- NOTE | 2016-09-17 14:45 | NUR ---
PT AWARE OF NEEDED URINE SPEC. COMODE PROVIDED
--- NOTE | 2016-09-17 14:51 | NUR ---
PT MEDICATED WITH ZOFRAN, MORPHINE, AND OFFIRMEV PER EMAR. TO CAT SCAN VIA STRETCHER.
--- NOTE | 2016-09-17 15:36 | NUR ---
PT RETURN FROM CAT SCAN AND IV NOT FLUSHING AT THIS TIME. ATTEMPTS X2 BY THIS RN TO RE-ESTABLISH ACCESS WITH NO SUCCESS.
--- NOTE | 2016-09-17 15:48 | NUR ---
BREN STARTED AT THIS TIME.
--- NOTE | 2016-09-17 17:07 | NUR ---
PT UPDATED ON POC. PT WILL BE TRANSFERRED TO [facility] FOR CAT SCAN AND WILL RETURN BACK.
--- NOTE | 2016-09-17 17:15 | NUR ---
[facility] TRANSPORT BOOKED TO GO TO [facility] CT SCAN.
--- NOTE | 2016-09-17 17:28 | NUR ---
ABDIRASHID HUNG AT THIS TIME. PT ASSISTED TO COMMODE TO PROVIDE URINE SPECIMEN.
--- NOTE | 2016-09-17 19:22 | NUR ---
[facility] TO BEDSIDE AT THIS TIME FOR TRANSPORT TO [facility] FOR CAT SCAN.
--- NOTE | 2016-09-17 21:11 | NUR ---
PT RETURN FROM [facility]. OFFERS NO COMPLAINTS AT THIS TIME.
--- NOTE | 2016-09-17 21:15 | NUR ---
DR. MCDONALD TO BEDSIDE TO DISCUSS RESULTS AND POC.
--- NOTE | 2016-09-17 23:00 | History & Physical ---
ANANYA PINO,[facility] [place] 09/17/16 2300: General Information and HPI MD Statement: I have seen and personally examined NANCY RICCI and documented this H&P. The patient is a 31 year old F who presented with a patient stated chief complaint of abdominal pain. Source of Information: patient, old records Exam Limitations: no limitations History of Present Illness: Ms. Ricci is a 31 y/o morbidly obese F with PMHx of gastric bypass (2003), factor V leiden mutation s/p recurrent DVT and PE on warfarin and bipolar disorder who presents with abdominal pain. Patient starts that the pain located in her lower abdomen started 2 days ago. The day prior to current presentation she was seen in the ED for the pain which was felt to be secondary to cellulitis given mild erythema and warmth appreciated around the left periumbilical region on exam. She was subsequently discharged on Augmentin and meloxicam but was not able to take the medications as they were not delivered to her from the pharmacy. This morning, the pain had started to radiate to her chest and back. She describes the chest pain as a 10 out of 10 "pricking" sensation. Patient reports associated shortness of breath, as pain is exacerbated by breathing, preventing her from taking deep breaths. She also endorses a dry cough which worsens the pain as well. There are no alleviating factors. ROS is positive for decreased appetite, nausea, vomiting, diarrhea and "seeing double". Patient denies fever, chills, palpitations, melena, bloody stool and dysuria. In the ED, patient spiked fevers to 103.2 and was given 1 dose of vancomycin, Flagyl and Bactrim for broad-spectrum coverage. CT Abdomen/Pelvis was attempted but could not be performed due to patient's obese body habitus as she was too large to fit comfortably into the scanner. She was transferred to [facility] for CT Abdomen/Pelvis which showed "two large consolidated mass-like densities in the left lung base along the pulmonary vasculature ... likely representing pneumonic consolidation". Patient is allergic to penicillin and ciprofloxacin. She is also allergic to cefazolin but reports that the reaction is vomiting. 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 Other ([facility]) Services at Home: None Primary Language: Hungarian Smoking Status: Current Everyday Smoker (2 Cigarettes Daily) ETOH Use: denies use Illicit Drug Use: denies illicit drug use Functional Ability ADLs Independent: dressing, eating, toileting, bathing. Ambulation: independent IADLs Independent: shopping, housework, finances, food prep, telephone, transportation , medication admin. 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 EENTM: Reports: double vision. Cardiovascular: Reports: chest pain. Denies: palpitations. Respiratory: Reports: cough, short of breath. Denies: orthopnea, sputum production. GI: Reports: abdominal pain, diarrhea, nausea, vomiting. Denies: melena, bloody stool. Genitourinary: Reports: no symptoms. Denies: dysuria. Musculoskeletal: Reports: no symptoms. Skin: Reports: no symptoms. Neurological/Psychological: Reports: no symptoms. Hematologic/Endocrine: Reports: no symptoms. Immunologic/Allergic: Reports: no symptoms. All Other Systems: Reviewed and Negative Exam & Diagnostic Data Last 24 Hrs of Vital Signs/I&O Vital Signs Date Time Temp Pulse Resp B/P B/P Pulse O2 O2 Flow FiO2 Mean Ox Delivery Rate 09/18 0030 98.2 88 20 125/60 97 Room Air 09/17 2345 98.1 09/17 2331 98.1 95 18 130/61 95 Room Air Room Air 09/17 1928 105 18 122/64 97 Room Air Room Air 09/17 1834 98.0 09/17 1647 98.7 109 18 97 Room Air 09/17 1548 113 16 98 Room Air 09/17 1522 100.7 09/17 1508 96 Room Air Room Air 09/17 1450 103.2 09/17 1335 103.2 110 20 128/66 97 Room Air Intake & Output 09/18 0800 09/18 0000 09/17 1600 Intake Total 1100 1250 Output Total Balance 1100 1250 Intake, IV 1100 1250 Patient 194.591 kg 194.591 kg Weight Weight Reported by Patient Reported by Patient Measurement Method Physical Exam General Appearance Alert, Oriented X3, No Acute Distress, Obese Skin No Rashes Skin Temp/Moisture Exam: Warm/Dry HEENT Atraumatic, Mucous Membr. moist/pink Neck Supple Cardiovascular Regular Rate, Normal S1, Normal S2 Lungs Clear to Auscultation, Exam Limited by Poor Respiratory Effort Secondary to Pain, Diminished Breath Sounds Abdomen Soft, No Tenderness, Positive Bowel Sounds, No Warmth, Erythema or Tenderness Appreciated on Abdominal Wall Extremities No Clubbing, No Cyanosis, No Edema Last 24 Hrs of Labs/Leonard: Laboratory Tests 09/17/16 1737: Urine Test NEGATIVE 09/17/16 173: Urine Color YEL, Urine Clarity CLEAR, Urine pH 6.0, Ur Specific [place] 1.010, Urine Protein NEG, Urine Ketones NEG, Urine Nitrite NEG, Urine Bilirubin NEG, Urine Urobilinogen 0.2, Ur Leukocyte Esterase NEG, Ur Microscopic EXAM NOT REQUIRED, Urine Hemoglobin NEG, Urine Glucose NEG 09/17/16 1352: Anion Gap 8, Estimated GFR > 60, BUN/Creatinine Ratio 21.3, Glucose 93, Lactic Acid 1.9, Calcium 9.1, Magnesium 1.6, Total Bilirubin 0.4, Direct Bilirubin 0.1, AST 16, ALT 20, Alkaline Phosphatase 68, Troponin I < 0.01, Total Protein 6.8, Albumin 3.6, PT 22.1 H, INR 2.12 H, CBC w Diff MAN DIFF ORDERED, RBC 4.32, MCV 90.4, MCH 29.6, RDW 16.6 H, MPV 7.5, Gran % 92.5 H, Lymphocytes % 5.1 L, Monocytes % 2.3, Eosinophils % 0, Basophils % 0.1, Absolute Granulocytes 14.8 H , Segmented Neutrophils 81 H, Band Neutrophils 7 H, Absolute Lymphocytes 0.8 L, Lymphocytes 9 L, Monocytes 3, Absolute Monocytes 0.4, Absolute Eosinophils 0 , Absolute Basophils 0, Platelet Estimate ADEQUATE, Normocytic RBCs VERIFIED, Normochromic RBCs VERIFIED, PUBS MCHC 32.7 L Microbiology 09/17 1737 URINE ROUT: Urine Culture - RECD 09/17 1410 BLOOD: Blood Culture - RECD 09/17 1358 BLOOD: Blood Culture - RECD 09/17 1352 BLOOD: Blood Culture - CAN Cancelled: Cancelled via OE: VENOUS COLLECTION 09/18 1351 BLOOD: Blood Culture - CAN Cancelled: Cancelled via OE: VENOUS COLLECTION Diagnostic Data EKG Results Sinus tachycardia HR 118 QTc 376 CXR Results 1. There are no acute cardiopulmonary findings. 2. Evaluation is slightly suboptimal as described above. Assessment/Plan Assessment: Ms. 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 #Pleuritic chest pain: Most likely etiology is pneumonia given fever (Tmax 103.2 ), leukocytosis (WBC count 16.0 with 7% bands) and CT Abdomen/Pelvis showing consolidation in the left lung base. Although pleuritic chest pain and shortness of breath could also be secondary to PE, it is less likely in this case as INR was therapeutic on admission. Patient met SIRS criteria for sepsis on admission with fever, leukocytosis and tachycardia. S/p 1 dose of vancomycin, Flagyl and Bactrim and 1 L bolus of NS x4 administered in the ED with defervescence. Currently afebrile, hemodynamically stable and satting well on room air. Although patient is allergic to cefazolin, her reaction is vomiting. * Admit to General Medicine. * Start ceftriaxone 2 mg IV and azithromycin 500 mg IV daily. * Mucinex 600 mg PO BID. * TRC and nebs. * Gentle hydration with NS @ 75 cc/hr overnight. * Check BCx. #Recurrent DVT/PE: With underlying factor V Leiden mutation. Takes warfarin 12 mg PO daily. INR therapeutic at 2.12 on admission. * Monitor INR daily and dose warfarin accordingly to keep INR 2-3. #Bipolar disorder: * Continue xzico-ib-uibgyonts Depakote 1.5 g PO daily, duloxetine 60 mg PO BID and lurasidone 80 mg PO daily. #Anxiety: * Continue envhb-vk-hhewgrkxt hydroxyzine 100 mg PO TID. #Migraine: * Continue fzmdb-uy-jerbvloba topiramate 200 mg PO QPM. #Insomnia: * Continue xaecu-dw-vdttzxtad trazodone 200 mg PO QPM and melatonin 3 mg PO QPM. #Urinary retention: * Continue dwulo-hl-sraexcqbh prazosin 200 mg PO QPM. Diet: Regular Pain: Tylenol 650 mg PO Q6H PRN for mild pain (scale 1-3) Vicodin 2 tabs PO Q6H PRN for moderate pain (scale 4-6) Oxycodone 10 mg PO Q6H PRN for severe pain (scael 7-10) DVT PPx: Warfarin and ALPs CODE: FULL As Ranked By This Provider Problem List: 1. Bipolar disorder 2. Anxiety 3. Morbid obesity 4. Sepsis Qualifiers Sepsis type: sepsis due to unspecified organism Qualified Code: A41.9 - Sepsis, unspecified organism 5. Pneumonia 6. Factor V Leiden mutation 7. History of DVT (deep vein thrombosis) 8. History of pulmonary embolism Core Measures/Miscellaneous Acute Coronary Syndrome ACS Diagnosis: No Cerebrovascular Accident CVA/TIA Diagnosis: No Congestive Heart Failure CHF Diagnosis: No VTE (View Protocol) VTE Risk Factors: Acute medical illness, Age > 40, Obesity, Previous VTE, Smoking No [facility] VTE prophylaxis d/t: No contraindications No VTE Pharm Prophylaxis d/t: No contraindications VTE Diagnosis: No VTE Type: NONE VTE Confirmed by (Test): NONE Sepsis (View Protocol) Severe Sepsis Present: No Septic Shock Septic Shock Present: No Miscellaneous Documentation Attending Case Discussed With: KYA HERNANDEZ MD Primary Care Physician: WALDEMAR KABA MD Patient sees these Specialists Real Estate Investor Luis Bryan MD Medical Delivery Technician Level of Patient Care: General Medicine QUINN PETERSEN 09/18/16 0324: General Information and HPI Allergies/Medications Home Med list Acetaminophen 325 MG TABLET 2-3 TAB PO Q6P PRN pain Albuterol Sulfate 2.5 MG/3 ML (0.083 %) VIAL.NEB 2.5 MG INH/RAFA Q6P PRN ASTHMA (Reported) Albuterol Sulfate (Proair Hfa) 90 MCG HFA.AER.AD 2 PUF INH PRN ASTHMA ( Reported) Augmentin (Augmentin 500-125 Tablet) 500 MG-125 MG TABLET 1 TAB PO BID cellulitis Divalproex Sodium (Depakote ER) 500 MG TAB.ER.24H 1,500 MG PO QPM MENTAL HEALTH (Reported) Duloxetine HCl (Cymbalta) 60 MG CAPSULE.DR 1 CAP PO BID MENTAL HEALTH ( Reported) Hydroxyzine Pamoate 100 MG CAPSULE 1 CAP PO TID PRN ANXIETY (Reported) Lurasidone HCl (Latuda) 80 MG TABLET 1 TAB PO QPM MENTAL HEALTH (Reported) Melatonin 3 MG TABLET 1 TAB PO QPM SLEEP (Reported) Meloxicam (Mobic) 15 MG TABLET 1 TAB PO DAILY PRN pain Prazosin HCl 2 MG CAPSULE 2 CAP PO QPM URINE (Reported) Prednisone 10 MG TABLET 0 PO SEE ADMIN CRITERIA leg pain 4 tabs for 3 days them 3 tabs for 3 days then 2 tabs for 3 days then 1 tab for 3 days Topiramate (Topamax) 200 MG TABLET 1 TAB PO QPM HEADACHES (Reported) Trazodone HCl 100 MG TABLET 2 TAB PO QPM SLEEP (Reported) Warfarin Sodium 6 MG TABLET 2 TAB PO DAILY pe Resident Review Statement Resident Statement: examined this patient, discussed with dietetic intern, agreed with dietetic intern, amended to note Other Findings: This is a 31 years old woman with past medical history of multiple PE DVT on warfarin with workup showing Leyden factor mutation, bipolar disorder, morbid obesity status post gastric bypass surgery in 2003 patient was seen yesterday in the ER with abdominal pain and diagnosed with cellulitis discharged home on Augmentin which she never started. Is coming back again with abdominal pain now radiating to the back and the chest stabbing like pain 10 out of 10 aggravated with coughing and deep breathing because of this the patient has been breathing shallow she denies any fever at home but reports chills especially today she has nausea but has not vomited On presentation the patient was very febrile with temperature up to 103.2 tachycardic at 110 stable pressure 128/66 and saturating 97% on room where Physical examination showed a very obese lady oriented to time place and person, not in any acute distress abdominal wall examination did not show any cellulitic lesion, she has decreased breath sounds and appears to hold her breath [place] due to pleuritic pain Lab work demonstrated leukocytosis 16,000, left shift granulocytes 92.5 with 7 bands, INR is therapeutic 2.12, abdominal pelvic x-ray involved part of the lung bases and showed a new dual suggestive of pneumonia in the right lower lung. Assessment and plan 31 years old morbidly obese lady presented with upper abdominal pain radiating to the chest aggravated with coughing and deep breathing found to have leukocytosis with left shift [address] scan evidence of pneumonia. This patient with BMI of 67 due to body habitus has decreased breathing effort to decrease airway clearance and risk of getting pneumonia though she denies other episodes in the past. Community-acquired pneumonia Morbid obesity Multiple PEs and DVT's on coumadin Admit patient to GM floor IV ceftriaxone and azithromycin. Patient gets rash with penicillin will be pre- treated with bernadryl Continue wafarin at 12mg daily and monitor INR (Therapeutic on arrival 2.12) Continue home bipolar medications Follow up blood and urine cultures Patient is full code, Coumdin for DVT prophylaxix and pain pathway KYA HERNANDEZ 09/18/16 0610: Attending MD Review Statement Attending Statement Attending MD Statement: examined this patient, discuss w/resident/PA/DENTURE TECHNICIAN, agreed w/resident/PA/DENTURE TECHNICIAN, reviewed EMR data (avail), reviewed images, amended to note Attending Assessment/Plan: CC: Left lower quadrant abdominal pain PMH: Morbid obesity S/P gastric bypass, asthma, history of DVT/PE with factor V Leyden, cardiac murmur Patient presented ER with diffuse lower abdominal pain more in left lower quadrant pain since 2 days. Patient was in ER with similar complaints 1 day back and was found to have abdominal wall cellulitis was discharged on Augmentin. patient did not take any dose of Augmentin at home but new type of pain started from left lower quadrant radiating to flank and then chest so she came back to ER again. Patient is unable to take deep breaths because of chest pain, 10 over 10 in intensity, pricking type. Endorses some shortness of breath, nausea one episode of vomiting and dry cough but denies any fever, chills, urinary frequency burning, dizziness shortness of breath, sick contacts. Vitals: T max 103.2, HR 110, RR 20, blood pressure 128/66, saturating well on room air. On examination: A O 3, morbidly obese, cooperative, no acute distress, neck supple, JVD normal, no lymphadenopathy, mucosa moist, no focal neurological deficit, no dependent edema, no obvious skin rashes or inflammation CVS: S1-S2, RRR systolic murmur and pulmonary area. RS: Clear to auscultate bilaterally. Abdomen: Soft, mild tenderness left lower quadrant on deep palpation with no guarding or rigidity, ND, bowel sounds present. No CVA tenderness Labs: WBC 16.0, neutrophils 92%, bands 7, hemoglobin 12.8, hematocrit 39.1, platelet 239, BMP unremarkable, lactate 1.9, LFT unremarkable, INR 2.12, UA unremarkable Chest x-ray: No acute cardiopulmonary process A and P 31-year-old morbidly obese female, presented in ER fifth diffuse lower abdominal pain more on left side radiating to back and then chest, worse with respiration, associated with dry cough. Examination is unremarkable but she has significant leukocytosis with neutrophilia lactate is normal. She had significant fever and tachycardia upon presentation and mild tenderness on deep palpation left lower quadrant because of her BMI, she could not fit in CT scan machine in [facility] so she was sent to [facility] for imaging CT abdomen and pelvis which was unremarkable except nodules on left side of the lung suggestive of pneumonia. Patient states that she is allergic to cefazolin and reaction is vomiting, I explained to her that ceftriaxone is important for the treatment and we can premedicate her she agrees to this treatment. Even though previous ER note mentions about abdominal wall cellulitis, on complete examination no such findings were observed. + Left lower lobe pneumonia + Sepsis secondary to pneumonia + Morbid obesity, history of asthma, history of DVT/PE with factor V Leyden + Left lower quadrant pain unclear etiology - Admit to general medicine - Continue gentle IV fluids - Continue IV ceftriaxone and azithromycin - Blood culture - Mucinex 600 mg by mouth twice a day - Continue home doses of warfarin - Continue rest of her home medications - Adequate pain control
--- NOTE | 2016-09-17 23:45 | NUR ---
PT AMBULATORY TO BATHROOM WITH STEADY GAIT AT THIS TIME AWAITING ADMISSION
--- NOTE | 2016-09-18 00:14 | NUR ---
PT REQUESTING SOMETHING FOR PAIN, HOUSE STAFF AWARE.
--- NOTE | 2016-09-18 00:29 | NUR ---
MEDICATED WITH ROXICODONE PER PRN ORDER FOR 9/10 ABD PAIN. BOXED LUNCH PROVIDED.
--- NOTE | 2016-09-18 01:18 | NUR ---
PT MOVED INTO HOSPITAL BED D/T BEING HOLD IN ED
--- NOTE | 2016-09-18 02:38 | NUR ---
IPOC INITIATED AND UP TO DATE
--- NOTE | 2016-09-18 04:10 | NUR ---
PT SLEEPING WITH REGULAR RR NOTED.
[2016-09-18 05:54] VITALS: BP 138/86
--- NOTE | 2016-09-18 06:12 | Admission Certification ---
Admission Certification Certification Statement - As attending physician, I certify that at the time of - admission, based on clinical presentation, severity of - symptoms, need for further diagnostic testing and - therapeutic interventions, and risk of adverse outcomes - without in-hospital treatment, in my clinical assessment, - this patient requires an acute hospital stay for a minimum - of two nights or longer. I have also considered psychsocial - factors such as support system, advanced age, financial - issues, cognitive issues, and failed out-patient treatments, - past re-admission history, safety of patient, and lack of - compliance as applicable. Specific rationale supporting this admission is: Left lower lobe pneumonia
[2016-09-18 08:02] LABS: ABSOLUTE BASOPHIL COUNT 0.1 /CUMM (0.0-0.2); ABSOLUTE EOSINOPHIL COUNT 0.1 /CUMM (0.0-0.7); ABSOLUTE GRANULOCYTE CT 15.9 /CUMM (1.4-6.5); ABSOLUTE LYMPH COUNT 2.8 /CUMM (1.2-3.4); ABSOLUTE MONOCYTE COUNT 1.7 /CUMM (0.10-0.60); BASOPHIL % 0.3 % (0.0-2.0); EOSINOPHIL % 0.4 % (0-5); GRANULOCYTE % 77.1 % (42.2-75.2); MEAN CORPUSCULAR HGB 29.7 PG (27.0-31.0); MEAN CORPUSCULAR VOLUME 89.9 FL (81.0-99.0); MEAN PLATELET VOLUME 8.2 FL (7.4-10.4); PLATELET COUNT 201 /CUMM (130-400); RBC DISTRIBUTION WIDTH 16.6 % (11.5-14.5); WHITE BLOOD CELL COUNT 20.6 /CUMM (4.8-10.8)
[2016-09-18 08:24] LABS: HEMATOCRIT 33.3 % (37-47)
--- NOTE | 2016-09-18 09:00 | PN- Housestaff ---
JOSE ELIAS BAZAN MD,JUANITO 09/18/16 0900: Subjective Follow-up For: Sepsis secondary to community-acquired pneumonia Leukocytosis Complaints: complaining of back pain Subjective: Patient feels better than yesterday but still experiencing back pain along with some chest pain by taking a deep breath Review of Systems Constitutional: Denies: chills, fever. EENTM: Denies: visual changes. Cardiovascular: Denies: chest pain, palpitations. Respiratory: Reports: cough, short of breath. Genitourinary: Denies: dysuria. Objective Last 24 Hrs of Vital Signs/I&O Vital Signs Date Time Temp Pulse Resp B/P B/P Pulse O2 O2 Flow FiO2 Mean Ox Delivery Rate 09/18 1110 Room Air 09/18 0800 Room Air 09/18 0554 98.8 83 20 138/86 96 Room Air 09/18 0400 98.4 89 18 136/64 96 Room Air 09/18 0030 98.2 88 20 125/60 97 Room Air 09/17 2345 98.1 09/17 2331 98.1 95 18 130/61 95 Room Air Room Air 09/17 1928 105 18 122/64 97 Room Air Room Air 09/17 1834 98.0 09/17 1647 98.7 109 18 97 Room Air 09/17 1548 113 16 98 Room Air 09/17 1522 100.7 09/17 1508 96 Room Air Room Air 09/17 1450 103.2 09/17 1335 103.2 110 20 128/66 97 Room Air Intake & Output 09/18 1600 09/18 0800 09/18 0000 Intake Total 225 1350 Output Total 300 Balance -75 1350 Intake, IV 225 1350 Output, Urine 300 Patient 429 lb 429 lb Weight Weight Reported by Patient Reported by Patient Measurement Method Physical Exam General Appearance: Alert, Oriented X3, Cooperative, Mild Distress HEENT: Atraumatic Neck: No JVD Cardiovascular: Regular Rate, Normal S1, Normal S2 Lungs: crackles on the base of left lung Abdomen: Soft, No Tenderness, morbid obesity, no erythema or skin changes Neurological: Normal Speech, Normal Tone Extremities: nonpitting edema,bilateral lower extremity chronic skin changes Vascular: Normal Pulses Current Medications: Current Medications Sig/Fer Start time Last Medication Dose Route Stop Time Status Admin Acetaminophen 650 MG Q6P PRN 09/18 0030 AC PO Acetaminophen 0 .STK-MED ONE 06/13 1448 DC IV Acetaminophen 1,000 MG ONCE ONE 09/17 1445 DC 09/17 IV 09/17 1446 1450 Acetaminophen/ 2 TAB Q6P PRN 09/18 0030 DC Hydrocodone Bitart PO Albuterol Sulfate 3 ML Q6P PRN 09/18 0230 AC INH Albuterol Sulfate 2 PUF Q4-6 PRN PRN 09/18 0230 AC INH Azithromycin 500 MG DAILY 09/18 1000 AC 09/18 Sodium Chloride 250 ML IV 1105 Ceftriaxone Sodium 2,000 MG DAILY 09/18 1000 AC 09/18 IV 1055 Divalproex Sodium 1,500 MG 2200 09/18 2200 AC PO Divalproex Sodium 1,500 MG DAILY 09/18 1000 DC PO Duloxetine HCl 60 MG BID 09/18 1000 AC 09/18 PO 1055 Guaifenesin 600 MG Q12 09/18 1000 AC 09/18 PO 1055 Guaifenesin 600 MG Q12 09/18 1000 CAN PO Hydroxyzine HCl 10 MG TID 09/18 1000 AC 09/18 PO 1055 Lurasidone HCl 80 MG 2200 09/18 2200 AC PO Lurasidone HCl 80 MG DAILY 09/18 1000 DC PO Melatonin 3 MG QPM 09/18 2200 AC PO Metronidazole 500 MG ONCE ONE 09/17 1430 DC 09/17 N/A 1 UNIT IV 09/17 1529 1729 Morphine Sulfate 0 .STK-MED ONE 09/17 1628 DC .ROUTE Morphine Sulfate 6 MG ONCE ONE 09/17 1615 DC 09/17 IV 09/17 1616 1639 Morphine Sulfate 0 .STK-MED ONE 09/17 1448 DC .ROUTE Morphine Sulfate 4 MG ONCE ONE 09/17 1400 DC 09/17 IV 09/17 1401 1450 Omeprazole 40 MG DAILY AC 09/18 0942 AC 09/18 PO 1055 Ondansetron HCl 0 .STK-MED ONE 09/17 1448 DC .ROUTE Ondansetron HCl 4 MG ONCE ONE 09/17 1400 DC 09/17 IV 09/17 1401 1450 Oxycodone HCl 10 MG Q6P PRN 09/18 0030 DC 09/18 PO 0852 Oxycodone HCl 0 .STK-MED ONE 09/18 0029 DC PO Oxycodone/ 2 TAB Q6P PRN 09/18 1045 AC 09/18 Acetaminophen PO 1104 Prazosin HCl 4 MG QPM 09/18 2200 AC PO Sodium Chloride 1,000 ML .[id number] 09/18 0245 AC 09/18 IV 0256 Sodium Chloride 1,000 ML BOLUS ONE 09/17 2130 DC 09/17 IV 09/17 2329 2207 Sodium Chloride 1,000 ML BOLUS ONE 09/17 1615 DC 09/17 IV 09/17 1814 1836 Sodium Chloride 1,000 ML BOLUS ONE 09/17 1400 DC 09/17 IV 09/17 1559 1440 Sodium Chloride 1,000 ML BOLUS ONE 09/17 1400 DC 09/17 IV 09/17 1559 1729 Topiramate 200 MG QPM 09/18 2200 AC PO Trazodone HCl 200 MG QPM 09/18 2200 AC PO Trimethoprim/ 0 .STK-MED ONE 09/17 1629 DC Sulfamethoxazole PO Trimethoprim/ 1 TAB ONCE ONE 09/17 1600 DC 09/17 Sulfamethoxazole PO 09/17 1601 1729 Vancomycin HCl 0 .STK-MED ONE 09/17 1448 DC .ROUTE Vancomycin HCl 1,000 MG ONCE ONE 09/17 1400 DC 09/17 Sodium Chloride 250 ML IV 09/17 1459 1548 Last 24 Hrs of Lab/Leonard Results Last 24 Hrs of Labs/Mics: Laboratory Tests 09/18/16 0635: PT 25.3 H, INR 2.43 H, CBC w Diff NO MAN DIFF REQ, RBC 3.70 L, MCV 89.9, MCH 29.7, RDW 16.6 H, MPV 8.2, Gran % 77.1 H, Lymphocytes % 13.7 L, Monocytes % 8.5, Eosinophils % 0.4, Basophils % 0.3, Absolute Granulocytes 15.9 H, Absolute Lymphocytes 2.8, Absolute Monocytes 1.7 H, Absolute Eosinophils 0.1, Absolute Basophils 0.1, PUBS MCHC 33.0 09/18/16 0600: Hemoglobin A1c 5.4 09/17/16 1737: Urine Test NEGATIVE 09/17/16 173: Urine Color YEL, Urine Clarity CLEAR, Urine pH 6.0, Ur Specific [place] 1.010, Urine Protein NEG, Urine Ketones NEG, Urine Nitrite NEG, Urine Bilirubin NEG, Urine Urobilinogen 0.2, Ur Leukocyte Esterase NEG, Ur Microscopic EXAM NOT REQUIRED, Urine Hemoglobin NEG, Urine Glucose NEG 09/17/16 1352: Anion Gap 8, Estimated GFR > 60, BUN/Creatinine Ratio 21.3, Glucose 93, Lactic Acid 1.9, Calcium 9.1, Magnesium 1.6, Total Bilirubin 0.4, Direct Bilirubin 0.1, AST 16, ALT 20, Alkaline Phosphatase 68, Troponin I < 0.01, Total Protein 6.8, Albumin 3.6, PT 22.1 H, INR 2.12 H, CBC w Diff MAN DIFF ORDERED, RBC 4.32, MCV 90.4, MCH 29.6, RDW 16.6 H, MPV 7.5, Gran % 92.5 H, Lymphocytes % 5.1 L, Monocytes % 2.3, Eosinophils % 0, Basophils % 0.1, Absolute Granulocytes 14.8 H , Segmented Neutrophils 81 H, Band Neutrophils 7 H, Absolute Lymphocytes 0.8 L, Lymphocytes 9 L, Monocytes 3, Absolute Monocytes 0.4, Absolute Eosinophils 0 , Absolute Basophils 0, Platelet Estimate ADEQUATE, Normocytic RBCs VERIFIED, Normochromic RBCs VERIFIED, PUBS MCHC 32.7 L Microbiology 09/18 925 LOWER RESP: Respiratory Culture - COLB 09/18 925 LOWER RESP: Gram Stain - COLB 09/17 1737 URINE ROUT: Urine Culture - RES 09/17 1410 BLOOD: Blood Culture - RES 09/17 1358 BLOOD: Blood Culture - RES 09/17 1352 BLOOD: Blood Culture - CAN Cancelled: Cancelled via OE: VENOUS COLLECTION 09/17 135 BLOOD: Blood Culture - CAN Cancelled: Cancelled via OE: VENOUS COLLECTION Lines/Diet/Fluids Lines: peripheral lines Restraints: none Assessment/Plan Assessment: 31-year-old woman with morbid obesity, past medical history significant for gastric bypass in 2003, factor V leiden mutation 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 Patient is admitted on general medicine floor for the management of following problems Sepsis secondary to Community-acquired pneumonia Patient was admitted with MAXIMUM TEMPERATURE of 100.7, tachycardia and white count of 16 and met the criteria for sepsis secondary to community-acquired pneumonia. Patient still has white coat 20.6 although she is not tachycardic and she is not febrile anymore. - Admit to General Medicine - Vitals q Shift - Check pulse oximetry - Send sputum cultures - Follow blood cultures x 2 - ABxs for community-acquired PNA - TRC nebs as needed History of recurrent DVT/PE Continue with Coumadin Adjust according to INR daily Patient is full code Patient is on regular diet Patient is on Coumadin for DVT prophylaxis Patient is on pain management Problem List: 1. Pneumonia 2. Anxiety 3. History of pulmonary embolism 4. Factor V Leiden mutation 5. History of DVT (deep vein thrombosis) Pain Ratin Pain Location: Back/flank pain Pain Goal: Pain 4 or less Pain Plan: By mouth pain medications were changed to Percocet as patient requested Tomorrow's Labs & Rationales: CBC for leukocytosis BEP for hyponatremia DVT/Prophylaxis: pharmacological HAMLET DUNBAR 09/18/16 0938: Attending MD Review Statement Attending Statement Attending MD Statement: examined this patient, discuss w/resident/PA/PHOTOGRAPHIC PRINTER, agreed w/resident/PA/PHOTOGRAPHIC PRINTER, discussed with family, reviewed EMR data (avail), discussed with nursing, discussed with case mgmt, reviewed images, amended to note Attending Assessment/Plan: ASSESSMENT AND PLAN 1. Left lower lobe pneumonia 2. Sepsis secondary to pneumonia 3. Morbid obesity s/p gastric bypass 2003 4. Left lower quadrant pain 5. history of asthma, history of DVT/PE with factor V [place] 6. depression - Admit to general medicine - Continue gentle IV fluids, Continue IV ceftriaxone and azithromycin, f/u Blood culture. - Continue home doses of warfarin, INR 2.12 - Continue rest of her home medications - Adequate pain control. - gi/dvt prophyalxis - full code.
[2016-09-18 10:50] LABS: PT 25.3 SEC (9.4-12.5)
[2016-09-18 14:30] VITALS: BP 134/78
--- NOTE | 2016-09-18 14:31 | NUR ---
PT IN PAIN THROUGHOUT SHIFT WHICH DID NOT SEEM TO GET RELIEVED BY PAIN MEDICATION. PER PATIENT, THE PAIN RADIATES TO BACK WHEN PATIENT BREATHES IN. INCENTIVE SPIROMETER AT BEDSIDE. PT DEMONSTRATED PROPER USAGE AND IS COMPLAINT. PT CURRENTLY RESTING COMFORTABLY IN BED.
--- NOTE | 2016-09-18 19:45 | NUR ---
Referral received this am from case maker, Chon Coley. The patient is a 31 year old female, admitted to the hospital on 09/17/16 with pnuemonia. Patient has been residing at [facility]; the local homeless group home. Referral received as patient was concerned that she may not be able to return to [facility]. I met with Paulette today. She reports that she is reaching the end of her scheduled stay at [facility]; in fact discharge was scheduled for today. Accoring to case maker at [facility], Paulette has done little to advocate for herself there, and at this time, [facility] is not offerring any flexibility in extending her stay. Paulette has been instructed to call 211 to register for new housing yet again, and to reach out to her brother, whom she has previously identified as a support. Will follow.
[2016-09-18 21:00] VITALS: BP 150/80
--- NOTE | 2016-09-19 00:06 | NUR ---
ALERT AND ORIENTED X 3. ON ROOM AIR. COMPLAINS OF SHALLOW BREATHS. LUNGS DIMINISHED. VITAL SIGNS STABLE. DENIES CHEST PAIN. + PULSES. DENIES NUMBNESS/TINGLING. MEDICATION GIVEN FOR BACK AND ABDOMINAL PAIN PATIENT RESTING AT THIS TIME.
[2016-09-19 07:11] VITALS: BP 118/78
--- NOTE | 2016-09-19 07:40 | PN- Housestaff ---
See Addendum Subjective Follow-up For: Sepsis secondary to community-acquired pneumonia Leukocytosis Pain management Complaints: COMPLAINING OF BACK AND FLANK PAIN Subjective: According to the patient, she feels much better than yesterday. No acute episodes of chest pain or shortness of breath but still requires narcotic pain medications to control her pain. Review of Systems Constitutional: Denies: chills, fever. EENTM: Denies: visual changes. Cardiovascular: Denies: chest pain, palpitations. Respiratory: Reports: cough, short of breath. Gastrointestinal: Denies: abdominal pain, nausea, vomiting. Genitourinary: Denies: dysuria. Musculoskeletal: Reports: back pain. Objective Last 24 Hrs of Vital Signs/I&O Vital Signs Date Time Temp Pulse Resp B/P B/P Pulse O2 O2 Flow FiO2 Mean Ox Delivery Rate 09/19 0800 95 Room Air 09/19 0711 98.7 74 20 118/78 95 Room Air 09/18 2128 85 150/80 09/18 2100 98.5 85 20 150/80 95 Room Air 09/18 1600 Room Air 09/18 1430 98.4 95 20 134/78 93 Room Air Intake & Output 09/19 1600 09/19 0800 09/19 0000 Intake Total 600 500 Output Total 600 Balance 600 -100 Intake, IV 600 Intake, Oral 500 Output, Urine 600 Patient 420 lb 438 lb Weight Physical Exam General Appearance: Alert, Oriented X3, Cooperative, Mild Distress, morbidly obese HEENT: Atraumatic Cardiovascular: Regular Rate, Normal S1, Normal S2 Lungs: residual crackles at the left lung base Abdomen: Normal Bowel Sounds, Soft, No Tenderness Neurological: Normal Speech, Normal Tone, Sensation Intact Extremities: nonpitting edema, bilateral lower extremity chronic skin changes Current Medications: Current Medications Sig/Fer Start time Last Medication Dose Route Stop Time Status Admin Acetaminophen 650 MG Q6P PRN 09/18 0030 AC 09/19 PO 0830 Albuterol Sulfate 3 ML Q6P PRN 09/18 0230 AC INH Albuterol Sulfate 2 PUF Q4-6 PRN PRN 09/18 0230 AC INH Azithromycin 500 MG DAILY 09/18 1000 AC 09/19 Sodium Chloride 250 ML IV 1008 Ceftriaxone Sodium 2,000 MG DAILY 09/18 1000 AC 09/19 IV 1008 Divalproex Sodium 1,500 MG 2200 09/18 2200 AC 09/18 PO 2128 Duloxetine HCl 60 MG BID 09/18 1000 AC 09/19 PO 1008 Guaifenesin 600 MG Q12 09/18 1000 AC 09/19 PO 1008 Hydroxyzine HCl 10 MG TID 09/18 1000 AC 09/19 PO 1008 Lurasidone HCl 80 MG 2200 09/18 2200 AC 09/18 PO 2127 Melatonin 3 MG QPM 09/18 2200 AC 09/18 PO 2129 Meloxicam 15 MG DAILY 09/19 1300 AC PO Omeprazole 40 MG DAILY AC 09/18 0942 AC 09/19 PO 0607 Oxycodone/ 1 TAB Q4 PRN 09/18 2245 AC 09/19 Acetaminophen PO 1009 Oxycodone/ 2 TAB Q6P PRN 09/18 1045 DC 09/18 Acetaminophen PO 1712 Patient Medication 1 ED .STK-MED ONE 09/18 1406 SD Teaching ED 09/18 1407 Prazosin HCl 4 MG QPM 09/18 2200 AC 09/18 PO 2128 Sodium Chloride 1,000 ML .[id number] 09/18 0245 AC 09/19 IV 0831 Topiramate 200 MG QPM 09/18 2200 AC 09/18 PO 2128 Trazodone HCl 200 MG QPM 09/18 2200 AC 09/18 PO 2128 Warfarin Sodium 12 MG COUMADIN 1700 ONE 09/18 1700 DC 09/18 PO 09/18 1701 1712 Last 24 Hrs of Lab/Leonard Results Last 24 Hrs of Labs/Mics: Laboratory Tests 09/19/16 0708: Anion Gap 5, Estimated GFR > 60, BUN/Creatinine Ratio 11.3, PT 19.0 H, INR 1.82 H, CBC w Diff NO MAN DIFF REQ, RBC 3.65 L, MCV 90.4, MCH 29.3, RDW 16.6 H, MPV 8.1, Gran % 79.1 H, Lymphocytes % 12.5 L, Monocytes % 6.9, Eosinophils % 1.4, Basophils % 0.1, Absolute Granulocytes 12.0 H, Absolute Lymphocytes 1.9, Absolute Monocytes 1.0 H, Absolute Eosinophils 0.2, Absolute Basophils 0, PUBS MCHC 32.4 L Microbiology 09/18 1555 URINE ROUT: Legionella Antigen - COMP 09/18 155 URINE ROUT: Streptococcus pneumoniae Antigen (M - COMP Assessment/Plan Assessment: 31-year-old woman with morbid obesity, past medical history significant for gastric bypass in 2003, factor V leiden mutation 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 Patient is admitted on general medicine floor for the management of following problems Sepsis secondary to Community-acquired pneumonia Patient was admitted with MAXIMUM TEMPERATURE of 100.7, tachycardia and white count of 16 and met the criteria for sepsis secondary to community-acquired pneumonia. Patient still has white coat 20.6 although she is not tachycardic and she is not febrile anymore. - Admit to General Medicine - Vitals q Shift - Check pulse oximetry - Send sputum cultures - Follow blood cultures x 2 - ABxs for community-acquired PNA - TRC nebs as needed History of recurrent DVT/PE Continue with Coumadin Adjust according to INR daily Pain management Patient has been complaining of constant back pain since admission. We have tried different narcotics at different doses. We have also put up her records from [facility]. We explained in detail about the possible side effects of continuous narcotics for pain management. We will add meloxicam for now and follow-up with the patient. manager stylist is also working with the patient for appropriate resources as an outpatient basis. Patient is full code Patient is on regular diet Patient is on Coumadin for DVT prophylaxis Patient is on pain management Problem List: 1. Pneumonia Pain Ratin Pain Location: Back and flank pain Pain Goal: Pain 4 or less Pain Plan: We will add meloxicam 15 mg daily current pain medications Tomorrow's Labs & Rationales: CBC for leukocytosis DVT/Prophylaxis: pharmacological
--- NOTE | 2016-09-19 08:03 | NUR ---
PATIENT COMPLAINING OF BACK PAIN 8.5/10 AT THIS TIME; PATIENT RECIEVED PERCOCET ORDERED AT 0607AM; PATIENT NOT DUE FOR ANY OTHER PAIN MEDICATION AT THIS TIME PER EMAR; DR MARISABEL BAZAN NOTIFIED AND IN ROOM AT THIS TIME TO ASSESS PATIENT AND ADDRESS PAIN LEVEL OF 8.5; AWAITING FURTHER ORDERS;
[2016-09-19 08:27] LABS: ABSOLUTE BASOPHIL COUNT 0 /CUMM (0.0-0.2); ABSOLUTE EOSINOPHIL COUNT 0.2 /CUMM (0.0-0.7); ABSOLUTE LYMPH COUNT 1.9 /CUMM (1.2-3.4); BASOPHIL % 0.1 % (0.0-2.0); EOSINOPHIL % 1.4 % (0-5); GRANULOCYTE % 79.1 % (42.2-75.2); MEAN CORPUSCULAR HGB 29.3 PG (27.0-31.0); MEAN CORPUSCULAR HGB CONC 32.4 G/DL (33.0-37.0); MEAN CORPUSCULAR VOLUME 90.4 FL (81.0-99.0); MEAN PLATELET VOLUME 8.1 FL (7.4-10.4); PLATELET COUNT 196 /CUMM (130-400); RBC DISTRIBUTION WIDTH 16.6 % (11.5-14.5); RED BLOOD CELL CT 3.65 /CUMM (4.20-5.40); WHITE BLOOD CELL COUNT 15.2 /CUMM (4.8-10.8)
--- NOTE | 2016-09-19 10:38 | NUR ---
PHYSICAL THERAPY- CONSULT RECEIVED, CHART REVIEWED. PT INDEPENDENTLY AMBULATING IN ROOM W/ USE OF RW. NO SKILLED ACUTE P.T. NEEDS IDENTIFIED. NOTE THAT PT HAS C/O LBP. SHOULD THESE SX PERSIST AFTER D/C, RECOMMEND OUTPATIENT P.T. FOLLOW FOR SX MANAGEMENT.
[2016-09-19 14:29] VITALS: BP 140/80
[2016-09-19 21:58] VITALS: BP 100/70
[2016-09-19 22:00] VITALS: BP 108/74
[2016-09-20 06:50] VITALS: BP 116/72
--- NOTE | 2016-09-20 07:49 | PN- Housestaff ---
See Addendum Subjective Follow-up For: Sepsis secondary to community-acquired pneumonia Leukocytosis Pain management Complaints: BACK AND FLANK PAIN Subjective: Patient's respiratory status is improved from yesterday. But she still complains of back and flank pain. Patient remained afebrile overnight. Review of Systems Constitutional: Denies: chills, fever. Cardiovascular: Denies: chest pain, palpitations. Respiratory: Reports: cough. Denies: short of breath. Gastrointestinal: Denies: abdominal pain, nausea, vomiting. Musculoskeletal: Reports: back pain. Objective Last 24 Hrs of Vital Signs/I&O Vital Signs Date Time Temp Pulse Resp B/P B/P Pulse O2 O2 Flow FiO2 Mean Ox Delivery Rate 09/20 0800 Room Air 09/20 0650 97.8 73 20 116/72 98 Room Air 09/19 2200 108/74 09/19 2158 98.1 74 18 100/70 97 09/19 2156 74 108/74 09/19 1600 96 Room Air 09/19 1429 98.1 83 20 140/80 96 Room Air Intake & Output 09/20 1600 09/20 0800 09/20 0000 Intake Total 600 1440 Output Total Balance 600 1440 Intake, IV 600 600 Intake, Oral 840 Physical Exam General Appearance: Alert, Oriented X3, Cooperative, No Acute Distress HEENT: Atraumatic Neck: No JVD Cardiovascular: Regular Rate, Normal S1, Normal S2 Lungs: Clear to Auscultation, Normal Air Movement Abdomen: Normal Bowel Sounds, Soft, No Tenderness, MORBID OBESITY Neurological: Normal Speech, Normal Tone, Sensation Intact Extremities: CHRONIC SKIN CHANGES AND NON PITTING EDEMA Current Medications: Current Medications Sig/Fer Start time Last Medication Dose Route Stop Time Status Admin Acetaminophen 650 MG Q6P PRN 09/18 0030 DC 09/19 PO 0830 Albuterol Sulfate 3 ML Q6P PRN 09/18 0230 AC INH Albuterol Sulfate 2 PUF Q4-6 PRN PRN 09/18 0230 AC INH Azithromycin 500 MG DAILY 09/18 1000 AC 09/20 Sodium Chloride 250 ML IV 0939 Ceftriaxone Sodium 2,000 MG DAILY 09/18 1000 AC 09/20 IV 0939 Divalproex Sodium 1,500 MG 2200 09/18 2200 AC 09/19 PO 2147 Duloxetine HCl 60 MG BID 09/18 1000 AC 09/20 PO 0939 Guaifenesin 600 MG Q12 09/18 1000 AC 09/20 PO 0939 Hydroxyzine HCl 10 MG TID 09/18 1000 AC 09/20 PO 0938 Lurasidone HCl 80 MG 2200 09/18 2200 AC 09/19 PO 2148 Melatonin 3 MG QPM 09/18 2200 AC 09/19 PO 2147 Meloxicam 15 MG DAILY 09/19 1300 AC 09/20 PO 0938 Omeprazole 40 MG DAILY AC 09/18 0942 AC 09/20 PO 0614 Oxycodone/ 2 TAB Q6P PRN 09/19 1500 AC 09/20 Acetaminophen PO 1319 Oxycodone/ 1 TAB Q4 PRN 09/18 2245 DC 09/19 Acetaminophen PO 1413 Patient Medication 1 ED .STK-MED ONE 09/20 1416 [place] Teaching ED 09/20 1417 Prazosin HCl 4 MG QPM 09/18 2200 AC 09/19 PO 2156 Sodium Chloride 1,000 ML .[id number] 09/18 0245 [place] 09/19 IV 2148 Topiramate 200 MG QPM 09/18 2200 AC 09/19 PO 2147 Trazodone HCl 200 MG QPM 09/18 2200 AC 09/19 PO 2147 Warfarin Sodium 12 MG COUMADIN 1700 ONE 09/19 1700 DC 09/19 PO 09/19 1701 1625 Last 24 Hrs of Lab/Leonard Results Last 24 Hrs of Labs/Mics: Laboratory Tests 09/20/16611: PT 19.5 H, INR 1.87 H, CBC w Diff NO MAN DIFF REQ, RBC 3.68 L, MCV 90.1, MCH 29.3, RDW 17.1 H, MPV 8.3, Gran % 63.2, Lymphocytes % 28.9, Monocytes % 5.6, Eosinophils % 2.0, Basophils % 0.3, Absolute Granulocytes 6.0, Absolute Lymphocytes 2.7, Absolute Monocytes 0.5, Absolute Eosinophils 0.2, Absolute Basophils 0, PUBS MCHC 32.5 L Lines/Diet/Fluids Restraints: none Assessment/Plan Assessment: 31-year-old woman with morbid obesity, past medical history significant for gastric bypass in 2003, factor V leiden mutation 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 Patient is admitted on general medicine floor for the management of following problems Sepsis secondary to Community-acquired pneumonia Patient was admitted with MAXIMUM TEMPERATURE of 100.7, tachycardia and white count of 16 and met the criteria for sepsis secondary to community-acquired pneumonia. Patient still has white coat 20.6 although she is not tachycardic and she is not febrile anymore. - Admit to General Medicine - Vitals q Shift - Check pulse oximetry - Send sputum cultures - Follow blood cultures x 2 - ABxs for community-acquired PNA - TRC nebs as needed History of recurrent DVT/PE Continue with Coumadin Adjust according to INR daily Pain management Patient has been complaining of constant back pain since admission. We have tried different narcotics at different doses. We have also put up her records from [facility]. Patient went to different providers in emergency department and has been prescribed a few narcotics. We explained in detail about the possible side effects of continuous narcotics for pain management. We will add meloxicam for now and follow-up with the patient. scanning manager is also working with the patient for appropriate resources as an outpatient basis. Patient is full code Patient is on regular diet Patient is on Coumadin for DVT prophylaxis Patient is on pain management Problem List: 1. Pneumonia Pain Ratin Pain Location: Back pain Pain Goal: Pain 4 or less Pain Plan: Continue current pain medications Tomorrow's Labs & Rationales: CBC for leukocytosis DVT/Prophylaxis: pharmacological
[2016-09-20 07:58] LABS: ABSOLUTE BASOPHIL COUNT 0 /CUMM (0.0-0.2); ABSOLUTE EOSINOPHIL COUNT 0.2 /CUMM (0.0-0.7); ABSOLUTE LYMPH COUNT 2.7 /CUMM (1.2-3.4); ABSOLUTE MONOCYTE COUNT 0.5 /CUMM (0.10-0.60); BASOPHIL % 0.3 % (0.0-2.0); GRANULOCYTE % 63.2 % (42.2-75.2); HEMATOCRIT 33.1 % (37-47); MEAN CORPUSCULAR HGB 29.3 PG (27.0-31.0); MEAN CORPUSCULAR HGB CONC 32.5 G/DL (33.0-37.0); MEAN CORPUSCULAR VOLUME 90.1 FL (81.0-99.0); MEAN PLATELET VOLUME 8.3 FL (7.4-10.4); PLATELET COUNT 207 /CUMM (130-400); RBC DISTRIBUTION WIDTH 17.1 % (11.5-14.5); RED BLOOD CELL CT 3.68 /CUMM (4.20-5.40); WHITE BLOOD CELL COUNT 9.5 /CUMM (4.8-10.8)
[2016-09-20 08:24] LABS: PT 19.5 SEC (9.4-12.5)
[2016-09-20 14:42] VITALS: BP 122/81
--- NOTE | 2016-09-20 16:05 | Patient Discharge Instructions ---
Discharge Instructions General Discharge Information You were seen/treated for: Community-acquired pneumonia Special Instructions: Follow-up with primary care in a week after discharge Diet Continue normal diet: Yes Recommended Diet: Regular Acute Coronary Syndrome Inclusion Criteria At DC or during hospital stay patient has or had the following: ACS DIAGNOSIS No Discharge Core Measures Meds if any: Prescribed or Continued at Discharge Meds if any: NOT Prescribed or Continued at Discharge Congestive Heart Failure Inclusion Criteria At DC or during hospital stay patient has or had the following: CHF DIAGNOSIS No Discharge Core Measures Meds if any: Prescribed or Continued at Discharge Meds if any: NOT Prescribed or Continued at Discharge Cerebrovascular accident Inclusion Criteria At DC or during hospital stay patient has or had the following: CVA/TIA Diagnosis No Discharge Core Measures Meds if any: Prescribed or Continued at Discharge Meds if any: NOT Prescribed or Continued at Discharge Venous thromboembolism Inclusion Criteria VTE Diagnosis No VTE Type NONE VTE Confirmed by (Test) NONE Discharge Core Measures - Per Current guidelines, there needs to be overlap - treatment for the first 5 days of Warfarin therapy. - If discharged on Warfarin prior to 5 days of - overlap therapy, the patient will need to be - assessed for post discharge needs including - *Post discharge parental anticoagulation - *Warfarin and/or parental anticoagulation education - *Follow up date to check INR post discharge At least 5 days overlap therapy as Inpatient No Meds if any: Prescribed or Continued at Discharge Note: Overlap Therapy is Warfarin and Anticoagulant Meds if any: NOT Prescribed or Continued at Discharge
[2016-09-20] MEDS ORDERED: AUGMENTIN 875-1 EACH PO ×3 (16:10→16:18)
[2016-09-20] MEDS ORDERED: PERCOCET 5-3251 EACH PO ×2 (16:13→16:18)
--- NOTE | 2016-09-20 16:32 | NUR ---
Patient reports that she has called 211 and has an intake next week, 09/27. She gave me this information yesterday, and I told her that she would likely be medically stable long before then. She confirmed understanding. Paulette asked me to call [facility] to ask them if they would be flexible in her discharge; they said no, again. I had encouraged Paulette to reach out to both her mother and her brother, and she reports that her brother is on vacation and her mother said no. I have encouraged her to reach out to any and all possibilities for temporary half-way.
--- NOTE | 2016-09-20 17:18 | Discharge Summary ---
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 On presentation the patient was very febrile with temperature up to 103.2 tachycardic at 110 stable pressure 128/66 and saturating 97% on room air. Physical examination, obese lady oriented to time place and person, not in any acute distress abdominal wall examination decreased breath sounds and appears to hold her breath Farley due to pleuritic pain. Lab work demonstrated leukocytosis 16,000, left shift granulocytes 92.5 with 7 bands, INR is therapeutic 2.12, chest x-ray showed, no acute cardiopulmonary findings. Patient was admitted on general medicine floor for the management of following problems Sepsis secondary to Community-acquired pneumonia Patient was admitted with MAXIMUM TEMPERATURE of 100.7, tachycardia and white count of 16 and met the criteria for sepsis secondary to community-acquired pneumonia. Patient was treated with IV ceftriaxone and azithromycin during the hospital stay and was switched to by mouth (Cefuroxime) 500 MG on discharge. Blood cultures and Legionella and Streptococcus pneumonia antigen were negative during the hospital stay. Patient received incentive spirometry and total respiratory care. History of recurrent DVT/PE We continued with the home dose of Coumadin and a check INR daily. Pain management/ discharge disposition Patient kept complaining of constant back pain since admission. We tried different narcotics at different doses. We also obtained records from [facility]. Patient has been to different providers in different emergency department and has been prescribed few tabs of narcotics. We explained in detail about the possible side effects of continuous narcotics for pain management. dispatch manager also worked with the patient for appropriate resources as an outpatient basis because she did not have a permanent home to go and was been in different [facility] places. Patient was full code Patient was on regular diet Patient was on Coumadin for DVT prophylaxis Patient was on pain management Allergies: Coded Allergies: bupropion (From WELLBUTRIN) (Severe, THROAT CLOSING 08/19/16) cephapirin (From CEFADYL) (Mild, HIVES 08/19/16) ciprofloxacin (From CIPRO) (Mild, VOMITING 08/19/16) tramadol (Mild, ITCHY 08/19/16) Disposition Summary Disposition Principal Diagnosis: Sepsis secondary to community-acquired pneumonia Leukocytosis Pain management Additional Diagnosis: Morbid obesity Narcotic dependence History of gastric bypass History of factor V laden mutation History of DVT and PE Discharge Disposition: home or self care Discharge Instructions General Discharge Information Code Status: Full Code Patient's Diet: Regular diet Patient's Activity: As tolerated Follow-Up Instructions/Appts: Follow-up with primary care in a week after discharge Medications at Discharge Discharge Medications: Continue taking these medications: Prazosin HCl (Prazosin HCl) 2 MG CAPSULE 2 Capsule ORAL Every night Qty = 60 Comments: NOT GIVEN IN HOSPITAL Albuterol Sulfate (Proair Hfa) 90 MCG HFA.AER.AD 2 Puff Inhale through mouth as needed for ASTHMA Comments: Last Taken: 09/21/16 Time: 0900AM Albuterol Sulfate (Albuterol Sulfate) 2.5 MG/3 ML (0.083 %) VIAL.NEB 2.5 Milligram Inhale Solution EVERY SIX HOURS NEEDED as needed for ASTHMA Comments: NOT GIVEN IN HOSPITAL Hydroxyzine Pamoate (Hydroxyzine Pamoate) 100 MG CAPSULE 1 Capsule ORAL THREE TIMES DAILY as needed for ANXIETY Qty = 90 Comments: NOT GIVEN Lurasidone HCl (Latuda) 80 MG TABLET 1 Tablet ORAL Every night Qty = 30 Comments: NOT GIVEN Duloxetine HCl (Cymbalta) 60 MG CAPSULE.DR 1 Capsule ORAL TWICE DAILY Qty = 60 Comments: Last Taken: 09/21/16 Time: 0900AM Divalproex Sodium (Depakote ER) 500 MG TAB.ER.24H 1,500 Milligram ORAL Every night Qty = 90 Comments: Last Taken: 09/20/16 Time: 2200PM Trazodone HCl (Trazodone HCl) 100 MG TABLET 2 Tablet ORAL Every night Qty = 60 Comments: Last Taken: 09/20/16 Time: 2200PM Melatonin (Melatonin) 3 MG TABLET 1 Tablet ORAL Every night Qty = 30 Comments: Last Taken: 09/21/16 Time: 2200PM Topiramate (Topamax) 200 MG TABLET 1 Tablet ORAL Every night Comments: Last Taken: 09/20/16 Time: 2200PM Warfarin Sodium (Warfarin Sodium) 6 MG TABLET 2 Tablet ORAL DAILY Qty = 50 Comments: Last Taken:09/21/16 Time: 1700PM Acetaminophen (Acetaminophen) 325 MG TABLET 2-3 Tablet ORAL EVERY SIX HOURS NEEDED as needed for pain Qty = 100 Comments: NOT GIVEN IN HOSPITAL Meloxicam (Mobic) 15 MG TABLET 1 Tablet ORAL DAILY as needed for pain Qty = 5 Comments: Last Taken: 09/21/16 Time: 0900AM Start taking the following new medications: Cefuroxime Axetil (Cefuroxime) 500 MG TABLET 1 Tablet ORAL TWICE DAILY Qty = 8 No Refills Comments: NOT GIVEN IN HOSPITAL Oxycodone HCl/Acetaminophen (Percocet 5-325 MG Tablet) 5 MG-325 MG TABLET 2 Tablet ORAL EVERY 6 HOURS NEEDED as needed for PAIN SCALE 7-10 (SEVERE) Qty = 40 No Refills Comments: Last Taken: 09/21/16 Time: 1155AM Copies To: ARABELLA HU MD
[2016-09-20 23:15] VITALS: BP 102/74
--- NOTE | 2016-09-21 04:55 | NUR ---
PT C/O DIFFICULTY BREATHING AND LT SIDED RIB/ABD PAIN. PT WITH EX WHEEZE NOTED, SOB, O2 SAT 96% ON RA. RT PAGED AND TO COME TO ASSESS PT. PT MEDICATED WITH PERCOCET AND ALBUTEROL INHALER AT THIS TIME. CERTIFIED DIABETES EDUCATOR ALMA UPDATED ON PT. WILL CONTINUE TO MONTIOR.
[2016-09-21 05:01] VITALS: BP 115/66
[2016-09-21 07:00] VITALS: BP 115/66
--- NOTE | 2016-09-21 08:22 | NUR ---
NURSING NOTE; PT C/O "NOT BEING ABLE TO TAKE A GOOD DEPP BREATH BECAUSE IT HURTS ON THE LEFT SIDE." PT AWAKE, A/OX3, SPEAKING IN FULL SENTENCES," ROOM AIR 97%. [employer] SUSTAINABLE DEVELOPMENT POLICY ANALYST CALLED AND MADE AWARE. NEEDS IN REACH, PT EATING BREAKFAST.
[2016-09-21 08:24] LABS: PT 22.5 SEC (9.4-12.5)
--- NOTE | 2016-09-21 11:14 | PN- Housestaff ---
BALA PINO,[facility] 09/21/16 1113: Subjective Follow-up For: 1. Sepsis secondary to community-acquired 2. Pneumonia 3. Leukocytosis 4. Pain management Complaints: Back and left flank/chest pain Subjective: Patient respiratory status is improved. However she states that she had a sudden onset of left sided back and chest pain which was worse on deep inspiration about 9/10 intensity. She also felt some lightheadedness. She denied palpitations or diaphoresis. She denied fevers, chills or shorttness of breath. Review of Systems Constitutional: Denies: chills, fever, weakness. Cardiovascular: Denies: chest pain, palpitations, syncope. Respiratory: Denies: cough, short of breath, sputum production. Gastrointestinal: Denies: abdominal pain, constipation, diarrhea, nausea, bloody stool, vomiting. Genitourinary: Denies: dysuria, hematuria. Musculoskeletal: Reports: back pain. Objective Last 24 Hrs of Vital Signs/I&O Vital Signs Date Time Temp Pulse Resp B/P B/P Pulse O2 O2 Flow FiO2 Mean Ox Delivery Rate 09/21 0822 18 97 Room Air 09/21 0700 98.1 95 20 115/66 98 Room Air 09/21 0511 92 Room Air 09/21 0501 98.1 95 26 115/66 98 Room Air 09/21 0000 Room Air 09/20 2315 98.0 82 18 102/74 98 Room Air 09/20 1600 Room Air 09/20 1442 98.3 89 20 122/81 93 Room Air Intake & Output 09/21 1600 09/21 0800 09/21 0000 Intake Total 850 Output Total Balance 850 Intake, Oral 850 Physical Exam General Appearance: Alert, Oriented X3, Cooperative, No Acute Distress Skin: No Rashes, No Breakdown Skin Temp/Moisture Exam: Warm/Dry Sepsis Skin Exam (color): Normal for Ethnicity HEENT: Atraumatic, EOMI, Mucous Membr. moist/pink Neck: Supple, No JVD, No thryomegaly Lymphatic: Cervical nl Cardiovascular: Regular Rate, Normal S1, Normal S2, No Murmurs Lungs: Reduced air movement in right lower and middle lung zones, Few fine crepitations in left lung base with normal air entry Abdomen: Normal Bowel Sounds, Soft, No Tenderness, No Hepatospenomegaly, No Masses Neurological: Normal Speech, Strength at 5/5 X4 Ext, Normal Tone Extremities: No Clubbing, No Edema Current Medications: Current Medications Sig/Fer Start time Last Medication Dose Route Stop Time Status Admin Albuterol Sulfate 3 ML Q6P PRN 09/18 0230 AC INH Albuterol Sulfate 2 PUF Q4-6 PRN PRN 09/18 0230 09/21 INH 0919 Azithromycin 500 MG DAILY 09/18 1000 AC 09/21 Sodium Chloride 250 ML IV 0919 Ceftriaxone Sodium 2,000 MG DAILY 09/18 1000 AC 09/21 IV 0919 Divalproex Sodium 1,500 MG 2200 09/18 2200 AC 09/20 PO 2031 Duloxetine HCl 60 MG BID 09/18 1000 AC 09/21 PO 0919 Guaifenesin 600 MG Q12 09/18 1000 AC 09/21 PO 0919 Hydroxyzine HCl 10 MG TID 09/18 1000 AC 09/21 PO 0919 Lurasidone HCl 80 MG 2200 09/18 2200 AC 09/20 PO 2029 Melatonin 3 MG QPM 09/18 2200 AC 09/20 PO 2030 Meloxicam 15 MG DAILY 09/19 1300 AC 09/21 PO 0919 Omeprazole 40 MG DAILY AC 09/18 0942 AC 09/21 PO 0450 Oxycodone/ 2 TAB Q6P PRN 09/19 1500 AC 09/21 Acetaminophen PO 0450 Patient Medication 1 ED .STK-MED ONE 09/20 1416 MO Teaching ED 09/20 1417 Prazosin HCl 4 MG QPM 09/18 2200 AC 09/20 PO 2030 Sodium Chloride 1,000 ML .[id number] 09/18 0245 MO 09/19 IV 2148 Topiramate 200 MG QPM 09/18 2200 AC 09/20 PO 2029 Trazodone HCl 200 MG QPM 09/18 2200 09/20 PO 2030 Warfarin Sodium 12 MG COUMADIN 1700 ONE 09/21 1700 AC PO 09/21 1701 Warfarin Sodium 12 MG COUMADIN 1700 ONE 09/20 1700 DC 09/20 PO 09/20 1701 1728 Last 24 Hrs of Lab/Leonard Results Last 24 Hrs of Labs/Mics: Laboratory Tests 09/21/1612: PT 22.5 H, INR 2.16 H Assessment/Plan Assessment: Ms Coates is a 31-year-old woman with morbid obesity, past medical history significant for gastric bypass in 2003, factor V leiden mutation 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 She presented in the emergency department, with diffuse lower abdominal pain more on left side radiating to back and then chest, worsens with respiration and associated with dry cough. Patient is admitted on general medicine floor for the management of following problems 1. Sepsis secondary to Community-acquired pneumonia Patient was admitted with MAXIMUM TEMPERATURE of 100.7, tachycardia and white count of 16 and met the criteria for sepsis secondary to community-acquired pneumonia. Her white count has trended down to 9.5/CUMM on current antibiotics. She has been afebrile for the past 4 days and is not tachycardic. - Blood culture no growth for 4 days. Urine legionella and S Pneumo antigen negative. No sputum sample collected for culture. Urine culture was not a good sample. -Can consider changing antibiotics to PO cefuroxime for total of 7 days of antibiotics and discharge tot - [facility] nebs as needed 2. History of recurrent DVT/PE Continue with Coumadin INR is terapeutic today Continue coumadin 12 mg daily on discharge 3. Pain management Patient has been complaining of constant back pain since admission. We have tried different narcotics at different doses. We have also pulled up her records from [facility]. Patient went to different providers in emergency department. We will prescribe some percocet pills on discharge. We explained in detail about the possible side effects of continuous narcotics for pain management. wireless manager is also working with the patient for appropriate resources as an outpatient basis. Patient is full code Patient is on regular diet Patient is on Coumadin for DVT prophylaxis Patient is on pain management Problem List: 1. Pneumonia Pain Ratin Pain Location: Back and left chest Pain Goal: Pain 4 or less Pain Plan: PO Percocet Tomorrow's Labs & Rationales: None needed DVT/Prophylaxis: pharmacological MELISSA JAY MD 09/21/16 1202: Attending MD Review Statement Attending Statement Attending MD Statement: examined this patient, discuss w/resident/PA/ANGLESMITH HELPER, agreed w/resident/PA/ANGLESMITH HELPER, discussed with nursing, discussed with case mgmt Attending Assessment/Plan: Objectively all parameters are better. Patient is afebrile, sats are 97% on room air, INR is therapeutic today at 2.16 and her white count has come down beautifully from 20,000 on admission to 9000 yesterday. Unfortunately the patient is homeless and cannot go back to the [facility]. This was addressed extensively yesterday by the bilingual social worker and rn case manager hospice and the patient was well aware that she is going to be discharged today provided her objective parameters are okay. The patient is upset and has no alternative arrangements for discharge. I explained to her at length that the parameters for sepsis and pneumonia are considerably better. She'll be leaving on by mouth antibiotics and by mouth analgesics. We are going to make sure that she gets a total 7 day course of antibiotics for pneumonia and adequate analgesia for the next 3-5 days. She understands that she needs close outpatient follow-up. She is requesting to speak to the rn case manager hospice again but she is medically stable for discharge.
--- NOTE | 2016-09-21 12:01 | NUR ---
NURSING NOTE: SITE LEAKING, ONLY 10ML LEFT OF ANTIBX IN BAG, IV DCD. DR MELISSA JAY AWARE. OK TO LEAVE IV OUT, PT TO BE DISCHARGED TODAY ON PO ANTIBX,
[2016-09-21] MEDS ORDERED: CEFUROXIME500 MG PO (12:07)
[2016-09-21] MEDS ORDERED: PERCOCET 5-3251 EACH PO (12:15)
== END 2016-09-21 15:25 | DRG 720 ==
LOC: ERH 13:17 → 2NB 22:51 → ERHI 22:51 → ENRESERV 09-18 04:07 → 2NB 09-18 05:50 → ENPENDDIS 09-20 18:03 → EDPENDDISDT 09-21 12:36 → EDPENDDISTM 09-21 12:36 → 2NB 09-21 15:25
PROVIDERS: Preventive Medicine Public Health & General Preventive Medicine; Student in an Organized Health Care Education/Training Program; ADMIT Internal Medicine
DX: A41.9 Sepsis, unspecified organism (principal); J18.9 Pneumonia, unspecified organism; D68.51 Activated protein C resistance; J45.909 Unspecified asthma, uncomplicated; F32.9 Major depressive disorder, single episode, unspecified; Z86.718 Personal history of other venous thrombosis and embolism; Z79.01 Long term (current) use of anticoagulants; F31.9 Bipolar disorder, unspecified; F11.20 Opioid dependence, uncomplicated; D72.829 Elevated white blood cell count, unspecified; Z68.41 Body mass index [BMI] 40.0-44.9, adult; G43.909 Migraine, unspecified, not intractable, without status migrainosus; G47.00 Insomnia, unspecified
CPT/HCPCS: ERO; 36415; 81003; 81025; 82436; 87040; 87070; 87086; 87449; 87450; 93005; 93010; 96374; 96375; 96376; 99291; J0131; J0456; J0696; J2405; J3370; J3490; J7040